=== PATIENT | female | born 1960 | race Hispanic/Latino ===

== ENCOUNTER 2020-04-22 17:33 | Inpatient (IN) | payer BC, OTHER, SELFPAY ==
[~2020-04-22] VITALS: Ht 157.5 cm; Wt 84.0 kg
[2020-04-22] MEDS ORDERED: ZOSYN 3.375GM+NS 50ML 50 ML IV ONE (18:00)
[2020-04-22] MEDS ORDERED: NOREPINEPHRINE 4MG/NS 250ML 250 ML IV ONE (18:01)
[2020-04-22 18:06] LABS: BASOPHILS % (AUTO) 0.9 % (0.0-5.0); EOSINOPHILS % (AUTO) 0.9 % (0.0-8.0); HEMATOCRIT 35.9 % (36-48); LYMPHOCYTES % (AUTO) 3.8 % (21.0-51.0); MEAN CORPUSCULAR HEMOGLOBIN 27.5 pg (27.0-33.0); MEAN CORPUSCULAR HGB CONC 31.8 g/dL (32.0-36.0); MEAN CORPUSCULAR VOLUME 86.7 fL (79-99); MONOCYTES % (AUTO) 9.1 % (3.0-13.0); NEUTROPHILS % (AUTO) 84.8 % (40.0-77.0); PLATELET COUNT (AUTO) 131 K/uL (130-400); RED BLOOD CELL COUNT(AUTO) 4.14 MIL/uL (4.00-5.50); WHITE BLOOD COUNT (AUTO) 5.8 K/uL (4.8-10.8)
[2020-04-22 18:38] LABS: APPEARANCE,URINE Clear (CLEAR); BILIRUBIN,URINE Negative (NEGATIVE); COLOR,URINE Yellow (YELLOW); GLUCOSE, URINE (UA) >=1000 mg/dL (NEGATIVE); KETONES,URINE Negative (NEGATIVE); LEUKOCYTE ESTERASE ,URINE Trace (NEGATIVE); NITRATE,URINE Negative (NEGATIVE); OCCULT BLOOD,URINE Negative (NEGATIVE); PROTEIN,URINE POS 1+ mg/dL (NEGATIVE); UROBILINOGEN,URINE 0.2 mg/dL (0.2-1.0)
[2020-04-22 18:41] LABS: ALANINE AMINOTRANSFERASE 16 U/L (12-78); ASPARTATE AMINOTRANSFERASE 16 U/L (10-37); CARBON DIOXIDE 19 mmol/L (21-32); CHLORIDE 95 mmol/L (101-111); CREATINE KINASE, TOTAL 43 U/L (21-232); CREATININE 1.9 mg/dL (0.5-1.5); GLOMERULAR FILTR. RATE CALC 29 mL/min (>60); GLUCOSE,RANDOM 300 mg/dL (70-105); MYOGLOBIN 165 ng/mL (10-92); SODIUM SERUM 132 mmol/L (136-145); TOTAL PROTEIN, SERUM 7.3 g/dL (6.0-8.3); TROPONIN I < 0.04 ng/mL (0.00-0.06); UREA NITROGEN, BLOOD 35 mg/dL (7-18)
[2020-04-22 18:46] LABS: POTASSIUM 2.6 mmol/L (3.5-5.1)
[2020-04-22] MEDS ORDERED: IOHEXOL-350 75 ML VIAL IV ONE (18:50)
[2020-04-22 18:53] LABS: BACTERIA,URINE Few /HPF (None Seen); RBC,URINE None Seen /HPF (0-1)
[2020-04-22 19:04] LABS: INR 1.22 (0.85-1.15); PROTHROMBIN TIME 13.1 SEC (9.6-11.6)
[2020-04-22 19:27] LABS: BAND NEUTROPHILS % (MANUAL) 32 % (0-2); LYMPHOCYTES % (MANUAL) 3 % (22-44); MAN.DIFF COMMENT-IMPRESSION MANUAL DIFFERENTIAL; METAMYELOCYTES % 8 % (0-0); MONOCYTES % (MANUAL) 9 % (2-9); SEGMENTED NEUTROPHILS % 48 % (40-70)
[2020-04-22] MEDS ORDERED: SODIUM CHLORIDE 0.9% 500ML 500 ML IV ONE ×3 (21:43→23:42)
[2020-04-22] MEDS ORDERED: FENTANYL CITRATE PF 50 MCG/1 ML 2ML VIAL ONE (22:58)
[2020-04-22] MEDS ORDERED: SODIUM CHLORIDE 0.9% 1000ML 1,000 ML IV SCH (23:48)
[2020-04-23] MEDS ORDERED: ERGOCALCIFEROL (VITAMIN D2) 50,000 UNIT CAPSULE PO SCH
[2020-04-23] MEDS ORDERED: DOXYCYCLINE 100MG+NS 250ML IV SCH
[2020-04-23] MEDS ORDERED: ERGOCALCIFEROL (VITAMIN D2) 50,000 UNIT CAPSULE ONE (00:55)
[2020-04-23] MEDS ORDERED: SODIUM CHLORIDE 0.9% 1000ML 1,000 ML IV ONE (00:55)
[2020-04-23] MEDS ORDERED: DOXYCYCLINE 100MG+NS 250ML 250 ML IV ONE ×3 (00:56→23:31)
[2020-04-23] MEDS ORDERED: NOREPINEPHRINE 4MG/NS 250ML 250 ML IV ONE ×6 (01:39→22:45)
[2020-04-23] MEDS ORDERED: PHENYLEPHRINE HCL 10 MG/ML 1ML VIAL IV ONE ×2 (02:27→22:57)
[2020-04-23] MEDS ORDERED: POTASSIUM CHLORIDE 20 MEQ ERTAB PO ONE (02:28)
[2020-04-23] MEDS: POTASSIUM CHLORIDE 20 MEQ ERTAB PO SCH (02:30)
[2020-04-23] MEDS ORDERED: NS-20 MEQ KCL 1000ML 1,000 ML IV ONE ×4 (02:31→22:55)
[2020-04-23] MEDS ORDERED: MORPHINE SULFATE 2 MG/ML 1ML SYG IVP PRN (03:00)
[2020-04-23] MEDS ORDERED: KETOROLAC TROMETHAMINE 30MG/ML IV PRN (03:00)
[2020-04-23 03:26] LABS: BASOPHILS % (AUTO) 0.9 % (0.0-5.0); EOSINOPHILS % (AUTO) 0.8 % (0.0-8.0); HEMATOCRIT 33.5 % (36-48); LYMPHOCYTES % (AUTO) 2.9 % (21.0-51.0); MEAN CORPUSCULAR HEMOGLOBIN 27.4 pg (27.0-33.0); MEAN CORPUSCULAR HGB CONC 31.6 g/dL (32.0-36.0); MEAN CORPUSCULAR VOLUME 86.6 fL (79-99); NEUTROPHILS % (AUTO) 88.1 % (40.0-77.0); PLATELET COUNT (AUTO) 167 K/uL (130-400); RED BLOOD CELL COUNT(AUTO) 3.87 MIL/uL (4.00-5.50); RED CELL DISTRIBUTION WIDTH 15.2 % (11.0-15.5); WHITE BLOOD COUNT (AUTO) 9.8 K/uL (4.8-10.8)
[2020-04-23] MEDS ORDERED: METRONIDAZOLE 500MG/100ML BAG 100 ML ONE ×3 (06:37→21:34)
[2020-04-23] MEDS ORDERED: INSULIN HUMULIN R 100 UNIT/ML 3ML ONE ×3 (06:44→18:01)
[2020-04-23] MEDS ORDERED: ENOXAPARIN SODIUM 40 MG/0.4 ML SYRINGE SQ SCH ×2 (09:00)
[2020-04-23] MEDS ORDERED: METHYLPREDNISOLONE SOD SUCC 40MG/ML 1ML IVP SCH (09:00)
[2020-04-23] MEDS ORDERED: FAMOTIDINE/PF 20 MG/2 ML VIAL IV ONE ×2 (09:09→21:34)
[2020-04-23] MEDS ORDERED: METHYLPREDNISOLONE SOD SUCC 40MG/ML 1ML ONE ×3 (09:09→21:34)
[2020-04-23] MEDS ORDERED: ENOXAPARIN SODIUM 40 MG/0.4 ML SYRINGE SQ ONE (09:09)
[2020-04-23] MEDS ORDERED: KETOROLAC TROMETHAMINE 30MG/ML ONE (09:13)
[2020-04-23] MEDS ORDERED: LORAZEPAM 2 MG/ML 1 ML VIAL ONE (09:52)
[2020-04-23] MEDS ORDERED: NOREPINEPHRINE 4MG/NS 250ML 250 ML IV PRN (11:15)
[2020-04-23] MEDS ORDERED: VASOPRESSIN 20 UNITS/NS 100ML IV SCH ×2 (11:15)
[2020-04-23 11:30] LABS: ABG BASE EXCESS -13.6 mmol/L (-2.0-3.0); ABG HCO3 12.9 mmol/L (21.0-28.0); ABG OXYGEN SATURATION 92.3 % (95.0-99.0); ABG PCO2 32 mmHg (32-45)
--- NOTE | 2020-04-23 12:03 | NUR ---
DC PLAN CALLED SPOUSE CLEMENTINA NO ANSWER LEFT MESSAGE. Addendum: 04/23/20 at 1205 by MELYSSA BAZAN RN CM Amended: Links added.
--- NOTE | 2020-04-23 15:00 | NUR ---
6 FR 3 LUMEN PICC INSERTED TO RIGHT BASILIC VEIN, USING ASEPTIC TECHNIQUE. CATHETER TRIMMED TO 43 CM, WITH 42CM INTERNALLY AND 1CM EXTERNAL; RIGHT ARM CIRCUMERERNCE 33CM. ALL 3 LUMENS HAVE GOOD BLOOD RETURN AND FLUSHED EASILY AND CLAMPED. (+) VPS BULLEYE INDICATES PICC TIP IN LOWER 1/3 OF SVC OR AT CAVOATRIAL JUNCTION. PICC OK TO USE PER PROTOCOL. WILFRIDO EVANGELISTA AWARE.
[2020-04-23 15:22] LABS: CREATININE 1.3 mg/dL (0.5-1.5); POTASSIUM 4.3 mmol/L (3.5-5.1)
[2020-04-23 15:27] LABS: ALBUMIN 2.1 g/dL (3.5-5.0); BILIRUBIN,TOTAL 0.4 mg/dL (0.2-1.0); TOTAL PROTEIN, SERUM 6.1 g/dL (6.0-8.3)
[2020-04-23 16:33] LABS: ABG BASE EXCESS -14.9 mmol/L (-2.0-3.0); ABG HCO3 11.4 mmol/L (21.0-28.0); ABG PCO2 29 mmHg (32-45)
[2020-04-23] MEDS ORDERED: SODIUM BICARB 8.4% 50ML SYRING 150 MEQ in SODIUM CHLORIDE 0.9% 1000ML 1,000 ML IV SCH (16:45)
[2020-04-23] MEDS ORDERED: SODIUM BICARB 50MEQ 50ML VIAL ONE (17:22)
[2020-04-23] MEDS ORDERED: MORPHINE SULFATE 2 MG/ML 1ML SYG ONE (18:25)
[2020-04-23] MEDS ORDERED: LORAZEPAM 2 MG/ML 1 ML VIAL IM PRN (19:15)
[2020-04-23] MEDS ORDERED: ACETYLCYSTEINE 600 MG CAPSULE ONE (21:34)
[2020-04-23 22:33] LABS: ABG BASE EXCESS -15.8 mmol/L (-2.0-3.0); ABG HCO3 10.6 mmol/L (21.0-28.0); ABG OXYGEN SATURATION 92.2 % (95.0-99.0); ABG PCO2 28 mmHg (32-45)
[2020-04-24] MEDS ORDERED: HALOPERIDOL LACTATE 5 MG/ML VIAL IM PRN (00:45)
[2020-04-24] MEDS ORDERED: LORAZEPAM 2 MG/ML 1 ML VIAL ONE (01:06)
[2020-04-24] MEDS ORDERED: PROPOFOL 1000 MG/100 ML 100 ML IV PRN (01:30)
[2020-04-24] MEDS ORDERED: PROPOFOL 1000 MG/100 ML 100 ML IV ONE ×4 (01:32→13:23)
[2020-04-24] MEDS ORDERED: MIDAZOLAM HCL 5 MG/ML 2ML VIAL IV ONE ×2 (02:09→03:25)
[2020-04-24] MEDS ORDERED: FENTANYL CITRATE PF 50 MCG/1 ML 2ML VIAL ONE (02:09)
[2020-04-24] MEDS: POTASSIUM CHLORIDE 20 MEQ ERTAB PO SCH (02:30)
[2020-04-24 02:44] LABS: ABG HCO3 11.4 mmol/L (21.0-28.0); ABG OXYGEN SATURATION 88.9 % (95.0-99.0); ABG PCO2 39 mmHg (32-45)
[2020-04-24] MEDS ORDERED: SODIUM BICARB 50MEQ 50ML VIAL ONE (03:22)
[2020-04-24] MEDS ORDERED: FENTANYL 2500MCG+NS 250ML 250 ML IV ONE (03:22)
[2020-04-24] MEDS ORDERED: MIDAZOLAM HCL 1 MG/ML 2ML VIAL ONE ×2 (03:25→03:26)
[2020-04-24] MEDS ORDERED: SODIUM BICARBONATE 650 MG TAB ONE ×2 (03:27→12:25)
[2020-04-24] MEDS ORDERED: NOREPINEPHRINE 4MG/NS 250ML 250 ML IV ONE ×3 (03:33→18:28)
[2020-04-24 04:46] LABS: ABG BASE EXCESS -13.1 mmol/L (-2.0-3.0); ABG HCO3 12.1 mmol/L (21.0-28.0); ABG OXYGEN SATURATION 98.9 % (95.0-99.0); ABG PCO2 27 mmHg (32-45)
[2020-04-24] MEDS ORDERED: METRONIDAZOLE 500MG/100ML BAG 100 ML ONE (05:34)
[2020-04-24] MEDS ORDERED: INSULIN HUMULIN R 100 UNIT/ML 3ML ONE ×2 (05:35→12:39)
[2020-04-24 06:18] LABS: ALBUMIN 1.9 g/dL (3.5-5.0); BILIRUBIN,DIRECT 0.1 mg/dL (0.0-0.3); BILIRUBIN,TOTAL 0.5 mg/dL (0.2-1.0); CREATININE 1.1 mg/dL (0.5-1.5); MAGNESIUM 2.3 mg/dL (1.80-2.40); PHOSPHORUS 3.6 mg/dL (2.5-4.9); POTASSIUM 4.4 mmol/L (3.5-5.1); TOTAL PROTEIN, SERUM 6.3 g/dL (6.0-8.3)
[2020-04-24] MEDS ORDERED: FENTANYL 1000MCG+NS 100ML 100 ML IV SCH (06:30)
[2020-04-24 06:37] LABS: CRP QUANTITATIVE 492.5 mg/L (0.00-9.0)
[2020-04-24] MEDS ORDERED: PHENYLEPHRINE HCL 10 MG/ML 1ML VIAL IV ONE (08:57)
[2020-04-24] MEDS: ZINC SULFATE 220 CAPSULE PO SCH (09:00)
[2020-04-24] MEDS: ASCORBIC ACID 500 MG TAB PO SCH (09:00)
[2020-04-24] MEDS ORDERED: ASCORBIC ACID 500 MG TAB ONE (09:43)
[2020-04-24] MEDS ORDERED: METHYLPREDNISOLONE SOD SUCC 40MG/ML 1ML ONE (09:43)
[2020-04-24] MEDS ORDERED: ENOXAPARIN SODIUM 40 MG/0.4 ML SYRINGE SQ ONE (09:44)
[2020-04-24] MEDS ORDERED: FAMOTIDINE/PF 20 MG/2 ML VIAL IV ONE (09:44)
[2020-04-24] MEDS ORDERED: ACETAMINOPHEN 650 MG SUPPOSITORY RC ONE (11:07)
[2020-04-24] MEDS ORDERED: DOXYCYCLINE 100MG+NS 250ML 250 ML IV ONE (12:49)
[2020-04-24] MEDS ORDERED: ACETAMINOPHEN EXTRA STRENGTH 500 MG TABLET ONE (13:05)
[2020-04-24 13:28] LABS: ABG BASE EXCESS -10.2 mmol/L (-2.0-3.0); ABG HCO3 13.5 mmol/L (21.0-28.0); ABG OXYGEN SATURATION 96.6 % (95.0-99.0); ABG PCO2 25 mmHg (32-45)
--- NOTE | 2020-04-24 15:22 | NUR ---
ICU ADMISSION NOTE Patient received sedated on fentanyl and propofol. Vital signs with in normal limits on herberth and levophed drip. Patient noted to have area of ecchymosis and hardened area on RUQ that appears to be a bug bite. Patient also has a wound on her back from a previous bug bite in which she has an I&D done, pelvic area edematous. Will continue to monitor patient.
--- NOTE | 2020-04-24 15:23 | NUR ---
cm note pt intubated on vent, call made to pts' spouse andry renae jr, and states that pt resides at home with him, is independent with all ads/self care and ambulation. no dme. pt drives, sees alden quick at [facility] [place]. states dc plan is for her to return back home at time of dc. discussed local clinics for non funded pt's and help vale phone #s provided, rx assist programs, spouse verbalizes understanding. Addendum: 04/24/20 at 1531 by VALERIA MCLEOD CM Amended: Links added.
[2020-04-24] MEDS ORDERED: NOREPINEPHRINE BITARTRATE 32 MG in SODIUM CHLORIDE 0.9% 250 ML IV SCH (17:30)
[2020-04-24] MEDS ORDERED: FLUCONAZOLE 200 MG/NS 100 ML 100 ML ONE (17:53)
[2020-04-24] MEDS ORDERED: METHYLPREDNISOLONE SOD SUCC 125MG/2ML VIAL ONE (17:54)
[2020-04-24] MEDS: INSULIN HUMULIN R 100 UNIT/ML 3ML SQ SCH (18:00)
[2020-04-24] MEDS: NS-20 MEQ KCL 1000ML 1,000 ML IV SCH (18:30)
[2020-04-24 19:48] VITALS: BP 158/66
[2020-04-24 20:00] VITALS: BP 159/63
[2020-04-24] MEDS: SODIUM BICARB 8.4% 50ML SYRING 150 MEQ in DEXTROSE 5%-WATER 1,000 ML IVP SCH ×2 (20:51→22:52)
[2020-04-24 21:00] VITALS: BP 152/60
[2020-04-24] MEDS ORDERED: ENOXAPARIN SODIUM 80 MG/0.8 ML SQ SCH (21:00)
[2020-04-24] MEDS ORDERED: ENOXAPARIN SODIUM 1 MG/KG SQ SCH (21:00)
[2020-04-24] MEDS: FAMOTIDINE/PF 20 MG/2 ML VIAL IV SCH (21:10)
[2020-04-24] MEDS: DOXYCYCLINE 100MG+NS 250ML 250 ML IV SCH (21:11)
[2020-04-24] MEDS: ACETYLCYSTEINE 600 MG CAPSULE PO SCH (21:11)
[2020-04-24] MEDS: METRONIDAZOLE 500MG/100ML BAG 100 ML IV SCH (21:56)
[2020-04-24 22:00] VITALS: BP 162/61
[2020-04-25] VITALS (56 sets, daily range): BP systolic 107–165; BP diastolic 46–65
[2020-04-25] MEDS: INSULIN HUMULIN R 100 UNIT/ML 3ML SQ SCH ×4 (00:04→18:16)
[2020-04-25] MEDS: NS-20 MEQ KCL 1000ML 1,000 ML IV SCH ×2 (01:04→05:30)
[2020-04-25] MEDS: POTASSIUM CHLORIDE 20 MEQ ERTAB PO SCH (02:03)
[2020-04-25] MEDS: PHENYLEPHRINE HCL 50 MG in SODIUM CHLORIDE 0.9% 245 ML IV PRN ×2 (03:52→18:17)
[2020-04-25] MEDS: ACETAMINOPHEN 325 MG TAB PO PRN (04:13)
[2020-04-25] MEDS: SODIUM BICARB 8.4% 50ML SYRING 150 MEQ in DEXTROSE 5%-WATER 1,000 ML IVP SCH (04:14)
[2020-04-25] MEDS: METRONIDAZOLE 500MG/100ML BAG 100 ML IV SCH ×3 (05:39→22:23)
[2020-04-25 05:56] LABS: EOSINOPHILS % (AUTO) 0.1 % (0.0-8.0); HEMATOCRIT 33.4 % (36-48); LYMPHOCYTES % (AUTO) 4.3 % (21.0-51.0); MEAN CORPUSCULAR HEMOGLOBIN 27.2 pg (27.0-33.0); MONOCYTES % (AUTO) 4.1 % (3.0-13.0); NEUTROPHILS % (AUTO) 90.9 % (40.0-77.0); NUCLEATED RED BLOOD CELLS 0.2 % (0.0-0.19); PLATELET COUNT (AUTO) 153 K/uL (130-400); RED BLOOD CELL COUNT(AUTO) 3.93 MIL/uL (4.00-5.50); RED CELL DISTRIBUTION WIDTH 15.8 % (11.0-15.5); WHITE BLOOD COUNT (AUTO) 12.8 K/uL (4.8-10.8)
[2020-04-25 06:48] LABS: BILIRUBIN,TOTAL 0.6 mg/dL (0.2-1.0); CREATININE 1.1 mg/dL (0.5-1.5); PHOSPHORUS 2.3 mg/dL (2.5-4.9); POTASSIUM 3.4 mmol/L (3.5-5.1); TOTAL PROTEIN, SERUM 6.2 g/dL (6.0-8.3)
[2020-04-25 07:00] LABS: CRP QUANTITATIVE 411.3 mg/L (0.00-9.0)
[2020-04-25] MEDS ORDERED: VANCOMYCIN PROTOCOL PER PHARMACY IV SCH (07:15)
[2020-04-25] MEDS ORDERED: HYDROCORTISONE SOD SUCCINATE 100 MG/2 ML VIAL IV SCH (07:15)
[2020-04-25 07:18] LABS: ALBUMIN 1.4 g/dL (3.5-5.0)
[2020-04-25] MEDS ORDERED: COMPOUND IV REFRIGERATED 1 EACH IVSOLN MISC PRN (07:30)
[2020-04-25] MEDS: INSULIN GLARGINE 100 UNITS/ML 10 ML VIAL SQ SCH (08:13)
[2020-04-25] MEDS ORDERED: LIDOCAINE HCL-MPF 1% 2ML VIAL IV PRN (08:15)
[2020-04-25] MEDS: ZINC SULFATE 220 CAPSULE PO SCH ×2 (08:17→09:00)
[2020-04-25] MEDS: CEFEPIME HCL 1 GM VIAL IVP SCH ×3 (08:18→23:27)
[2020-04-25] MEDS: FAMOTIDINE/PF 20 MG/2 ML VIAL IV SCH ×2 (08:18→21:23)
[2020-04-25] MEDS: ASCORBIC ACID 500 MG TAB PO SCH ×2 (08:18→09:00)
[2020-04-25] MEDS: ACETYLCYSTEINE 600 MG CAPSULE PO SCH (08:18)
[2020-04-25] MEDS: ENOXAPARIN SODIUM 40 MG/0.4 ML SYRINGE SQ SCH (08:19)
[2020-04-25] MEDS: VANCOMYCIN 1.5 GM in SODIUM CHLORIDE 0.9% 250 ML IV SCH (08:21)
[2020-04-25] MEDS: DOXYCYCLINE 100MG+NS 250ML 250 ML IV SCH ×2 (09:13→21:23)
[2020-04-25] MEDS ORDERED: LACTULOSE 20 GM/30 ML UDCUP PO SCH (10:00)
[2020-04-25] MEDS ORDERED: PHARMACY COMMUNICATION MISC SCH (10:30)
[2020-04-25] MEDS: FENTANYL 2500MCG+NS 250ML 250 ML IV SCH (10:47)
[2020-04-25] MEDS ORDERED: INSULIN HUMULIN R 100 UNIT/ML 3ML SQ SCH (12:00)
--- NOTE | 2020-04-25 12:56 | NUR ---
DR JORDAN CONSULT DR JORDAN CONSULTED AND MADE AWARE; STATED SHE SEES PATIENT ON AN OUTPATIENT BASIS WELL AND WOULD COME IN TO SEE PATIENT TODAY. NO ORDERS GIVEN AT THIS TIME
[2020-04-25] MEDS: HYDROCORTISONE SOD SUCCINATE 100 MG/2 ML VIAL IV SCH ×2 (16:19→22:23)
[2020-04-25] MEDS: HONEY 1 APPL/ML TUBE TP SCH (16:56)
[2020-04-25] MEDS ORDERED: ALBUTEROL INHALER 90MCG/INH IH SCH (18:00)
[2020-04-25] MEDS ORDERED: ACETYLCYSTEINE 10% 100MG/ML 4ML VIAL IH SCH (21:00)
[2020-04-25] MEDS: LACTULOSE 20 GM/30 ML UDCUP PO SCH (21:23)
[2020-04-25] MEDS: ALBUTEROL INHALER 90MCG/INH IH SCH (21:25)
[2020-04-25] MEDS: MIDAZOLAM 100MG-0.9% NS 100ML 100 ML IV SCH (23:52)
[2020-04-26] VITALS (19 sets, daily range): BP systolic 96–132; BP diastolic 45–78
[2020-04-26] MEDS: INSULIN HUMULIN R 100 UNIT/ML 3ML SQ SCH ×4 (00:09→17:56)
[2020-04-26] MEDS: MIDAZOLAM 100MG-0.9% NS 100ML 100 ML IV SCH (00:57)
[2020-04-26] MEDS: ALBUTEROL INHALER 90MCG/INH IH SCH ×4 (03:11→20:45)
[2020-04-26] MEDS: HYDROCORTISONE SOD SUCCINATE 100 MG/2 ML VIAL IV SCH ×4 (04:17→22:24)
[2020-04-26 05:01] LABS: HEMATOCRIT 30.8 % (36-48); LYMPHOCYTES % (AUTO) 7.7 % (21.0-51.0); MEAN CORPUSCULAR HEMOGLOBIN 27.7 pg (27.0-33.0); MEAN CORPUSCULAR HGB CONC 32.1 g/dL (32.0-36.0); NEUTROPHILS % (AUTO) 85.3 % (40.0-77.0); PLATELET COUNT (AUTO) 118 K/uL (130-400); RED BLOOD CELL COUNT(AUTO) 3.58 MIL/uL (4.00-5.50); RED CELL DISTRIBUTION WIDTH 15.7 % (11.0-15.5); WHITE BLOOD COUNT (AUTO) 9.4 K/uL (4.8-10.8)
[2020-04-26] MEDS: METRONIDAZOLE 500MG/100ML BAG 100 ML IV SCH ×3 (05:28→22:24)
[2020-04-26 05:33] LABS: ALBUMIN 1.2 g/dL (3.5-5.0); BILIRUBIN,TOTAL 0.5 mg/dL (0.2-1.0); MAGNESIUM 2.4 mg/dL (1.80-2.40); PHOSPHORUS 2.3 mg/dL (2.5-4.9); TOTAL PROTEIN, SERUM 5.7 g/dL (6.0-8.3)
[2020-04-26 05:39] LABS: ABG BASE EXCESS 1.6 mmol/L (-2.0-3.0); ABG HCO3 24.6 mmol/L (21.0-28.0); ABG OXYGEN SATURATION 89.2 % (95.0-99.0); ABG PCO2 34 mmHg (32-45)
[2020-04-26 05:54] LABS: POTASSIUM 2.8 mmol/L (3.5-5.1)
[2020-04-26] MEDS: POTASSIUM CHLORIDE 20MEQ/100ML 100 ML IV PRN (05:58)
[2020-04-26] MEDS: CEFEPIME HCL 1 GM VIAL IVP SCH ×2 (06:25→17:34)
--- NOTE | 2020-04-26 07:30 | NUR ---
DR. WRIGHT HERE AND ORDERS NOTED. FIO2 INCREASED TO 50% AND DOMINGUEZ MULLEN NOTIFIED.
[2020-04-26] MEDS: ASCORBIC ACID 500 MG TAB PO SCH (08:05)
[2020-04-26] MEDS: ZINC SULFATE 220 CAPSULE PO SCH (08:05)
[2020-04-26] MEDS: FAMOTIDINE/PF 20 MG/2 ML VIAL IV SCH ×2 (08:05→21:00)
[2020-04-26] MEDS: ENOXAPARIN SODIUM 40 MG/0.4 ML SYRINGE SQ SCH (08:06)
[2020-04-26] MEDS: HONEY 1 APPL/ML TUBE TP SCH (08:09)
[2020-04-26] MEDS: INSULIN GLARGINE 100 UNITS/ML 10 ML VIAL SQ SCH (08:09)
[2020-04-26 09:46] LABS: CRP QUANTITATIVE 291.2 mg/L (0.00-9.0)
--- NOTE | 2020-04-26 15:47 | NUR ---
RD NOTIFICATION Pt admitted with Abdominal pain. S/p Intubation. Tube Feeding Recommendation: Continuous Vital AF 1.2 initiated at 20mls/hr. Goal rate 50mls/hr. Rec flushes at 140mls Q4Hrs. Faxed to Day Patient (365), RN notified. NUTRITION NOTE: Pt with Obesity Class II. Na 150, K 2.8, BG 232, P 2.3, Alb 1.2. RD to continue to monitor. Please notify as additional nutrition concerns arise. Thank you.
--- NOTE | 2020-04-26 17:00 | NUR ---
HAVE SPOKEN TO TWICE TODAY AND UPDATES HAVE BEEN GIVEN. PT HAS REMAINED BASICALLY UNCHANGED. WOUND CARE NURSE HERE AND [place] THAT [place] [facility] [place]
[2020-04-26] MEDS: DOXYCYCLINE 100MG+NS 250ML 250 ML IV SCH ×2 (17:31→22:24)
[2020-04-26] MEDS: VANCOMYCIN 1.5 GM in SODIUM CHLORIDE 0.9% 250 ML IV SCH (17:32)
[2020-04-26] MEDS: LACTULOSE 20 GM/30 ML UDCUP PO SCH ×2 (17:33→22:24)
[2020-04-26] MEDS: FENTANYL 2500MCG+NS 250ML 250 ML IV SCH (20:47)
[2020-04-27] VITALS (24 sets, daily range): BP systolic 94–130; BP diastolic 45–60
[2020-04-27] MEDS: CEFEPIME HCL 1 GM VIAL IVP SCH ×3 (00:06→14:34)
[2020-04-27] MEDS: INSULIN HUMULIN R 100 UNIT/ML 3ML SQ SCH ×4 (00:07→17:31)
[2020-04-27] MEDS: ALBUTEROL INHALER 90MCG/INH IH SCH ×4 (03:00→21:15)
[2020-04-27] MEDS: HYDROCORTISONE SOD SUCCINATE 100 MG/2 ML VIAL IV SCH (04:40)
[2020-04-27 05:56] LABS: BASOPHILS % (AUTO) 0.2 % (0.0-5.0); LYMPHOCYTES % (AUTO) 10.2 % (21.0-51.0); MEAN CORPUSCULAR HEMOGLOBIN 27.5 pg (27.0-33.0); MEAN CORPUSCULAR HGB CONC 31.6 g/dL (32.0-36.0); MEAN CORPUSCULAR VOLUME 86.8 fL (79-99); MONOCYTES % (AUTO) 4.4 % (3.0-13.0); PLATELET COUNT (AUTO) 129 K/uL (130-400); RED BLOOD CELL COUNT(AUTO) 3.57 MIL/uL (4.00-5.50); RED CELL DISTRIBUTION WIDTH 16.1 % (11.0-15.5); WHITE BLOOD COUNT (AUTO) 10.4 K/uL (4.8-10.8)
[2020-04-27] MEDS: METRONIDAZOLE 500MG/100ML BAG 100 ML IV SCH ×3 (06:06→22:10)
[2020-04-27 06:20] LABS: ALBUMIN 1.1 g/dL (3.5-5.0); BILIRUBIN,TOTAL 0.4 mg/dL (0.2-1.0); TOTAL PROTEIN, SERUM 5.3 g/dL (6.0-8.3)
[2020-04-27] MEDS: POTASSIUM CHLORIDE 20MEQ/100ML 100 ML IV PRN ×4 (06:49→17:35)
[2020-04-27] MEDS: FAMOTIDINE/PF 20 MG/2 ML VIAL IV SCH ×2 (09:09→21:09)
[2020-04-27] MEDS: DOXYCYCLINE 100MG+NS 250ML 250 ML IV SCH ×2 (09:09→21:07)
[2020-04-27] MEDS: LACTULOSE 20 GM/30 ML UDCUP PO SCH ×2 (09:09→21:08)
[2020-04-27] MEDS: FUROSEMIDE 10 MG/ML 2ML VIAL IV SCH ×2 (09:10→21:08)
[2020-04-27] MEDS: ENOXAPARIN SODIUM 40 MG/0.4 ML SYRINGE SQ SCH (09:11)
[2020-04-27] MEDS: INSULIN GLARGINE 100 UNITS/ML 10 ML VIAL SQ SCH (09:12)
[2020-04-27] MEDS: ASCORBIC ACID 500 MG TAB PO SCH (09:12)
[2020-04-27] MEDS: ZINC SULFATE 220 CAPSULE PO SCH (09:12)
[2020-04-27] MEDS: HONEY 1 APPL/ML TUBE TP SCH (09:15)
[2020-04-27] MEDS: MIDAZOLAM 100MG-0.9% NS 100ML 100 ML IV SCH (12:41)
[2020-04-27] MEDS: VANCOMYCIN 1.5 GM in SODIUM CHLORIDE 0.9% 250 ML IV SCH ×2 (12:42→21:12)
[2020-04-27 15:57] LABS: CREATININE 0.9 mg/dL (0.5-1.5)
[2020-04-27 15:59] LABS: POTASSIUM 2.6 mmol/L (3.5-5.1)
[2020-04-27] MEDS ORDERED: POTASSIUM CHLORIDE 10% ELIXIR 20 MEQ/15 ML UDCUP PO SCH (18:00)
[2020-04-28] VITALS (24 sets, daily range): BP systolic 91–162; BP diastolic 41–88
[2020-04-28] MEDS: CEFEPIME HCL 1 GM VIAL IVP SCH ×3 (00:09→14:12)
[2020-04-28] MEDS: INSULIN HUMULIN R 100 UNIT/ML 3ML SQ SCH ×4 (00:12→18:11)
[2020-04-28 03:47] LABS: ABG BASE EXCESS -0.5 mmol/L (-2.0-3.0); ABG HCO3 22.9 mmol/L (21.0-28.0); ABG OXYGEN SATURATION 92.2 % (95.0-99.0); ABG PCO2 34 mmHg (32-45)
[2020-04-28] MEDS: ALBUTEROL INHALER 90MCG/INH IH SCH ×4 (03:47→21:38)
[2020-04-28] MEDS: FENTANYL 2500MCG+NS 250ML 250 ML IV SCH (03:48)
[2020-04-28 04:58] LABS: BASOPHILS % (AUTO) 0.5 % (0.0-5.0); EOSINOPHILS % (AUTO) 0.3 % (0.0-8.0); HEMATOCRIT 34.7 % (36-48); LYMPHOCYTES % (AUTO) 9.6 % (21.0-51.0); MEAN CORPUSCULAR HGB CONC 30.5 g/dL (32.0-36.0); MEAN CORPUSCULAR VOLUME 88.5 fL (79-99); MONOCYTES % (AUTO) 2.6 % (3.0-13.0); NEUTROPHILS % (AUTO) 85.1 % (40.0-77.0); NUCLEATED RED BLOOD CELLS 0.1 % (0.0-0.19); PLATELET COUNT (AUTO) 146 K/uL (130-400); RED BLOOD CELL COUNT(AUTO) 3.92 MIL/uL (4.00-5.50); RED CELL DISTRIBUTION WIDTH 16.3 % (11.0-15.5); WHITE BLOOD COUNT (AUTO) 15.5 K/uL (4.8-10.8)
[2020-04-28 05:20] LABS: ALBUMIN 1.1 g/dL (3.5-5.0); BILIRUBIN,TOTAL 0.4 mg/dL (0.2-1.0); CREATININE 0.8 mg/dL (0.5-1.5); MAGNESIUM 1.9 mg/dL (1.80-2.40); POTASSIUM 3.2 mmol/L (3.5-5.1); TOTAL PROTEIN, SERUM 5.6 g/dL (6.0-8.3)
[2020-04-28] MEDS: METRONIDAZOLE 500MG/100ML BAG 100 ML IV SCH ×3 (05:31→21:37)
[2020-04-28] MEDS: POTASSIUM CHLORIDE 10% ELIXIR 20 MEQ/15 ML UDCUP PO PRN ×2 (06:11→18:29)
--- NOTE | 2020-04-28 06:15 | NUR ---
Potassium coverage given per protocol and patient kept NPO at this time for a possible extubation.
[2020-04-28] MEDS: LACTULOSE 20 GM/30 ML UDCUP PO SCH ×2 (08:11→21:35)
[2020-04-28] MEDS: VANCOMYCIN 1.5 GM in SODIUM CHLORIDE 0.9% 250 ML IV SCH ×2 (08:13→21:37)
[2020-04-28] MEDS: FAMOTIDINE/PF 20 MG/2 ML VIAL IV SCH ×2 (08:14→21:36)
[2020-04-28] MEDS: FUROSEMIDE 10 MG/ML 2ML VIAL IV SCH ×2 (08:14→21:36)
[2020-04-28] MEDS: ZINC SULFATE 220 CAPSULE PO SCH (08:15)
[2020-04-28] MEDS: ENOXAPARIN SODIUM 40 MG/0.4 ML SYRINGE SQ SCH (08:15)
[2020-04-28] MEDS: ASCORBIC ACID 500 MG TAB PO SCH (08:16)
[2020-04-28] MEDS: INSULIN GLARGINE 100 UNITS/ML 10 ML VIAL SQ SCH (09:00)
--- NOTE | 2020-04-28 10:30 | NUR ---
HAVE SPOKEN WITH AND WAS UPDATED ON THE PRESENT STATUS AND PLAN OF TREATMENT/CARE FOR TODAY. TO CALL LATER TODAY TO CHECK ON THE OTHER DOCTORS PLAN OF CARE.
[2020-04-28] MEDS: DOXYCYCLINE HYCLATE 100 MG TABLET PO SCH ×2 (12:09→21:36)
[2020-04-28] MEDS: HONEY 1 APPL/ML TUBE TP SCH (12:10)
[2020-04-28] MEDS ORDERED: ACETAMINOPHEN ELIXIR 160 MG/5ML UDCUP PO PRN (13:45)
[2020-04-28] MEDS: MEROPENEM 1 GM VIAL IVP SCH (16:12)
[2020-04-28 17:20] LABS: CREATININE 0.9 mg/dL (0.5-1.5); MAGNESIUM 1.9 mg/dL (1.80-2.40); POTASSIUM 3.4 mmol/L (3.5-5.1)
[2020-04-28] MEDS: ACETAMINOPHEN ELIXIR 650 MG/20.3 ML UDCUP PO PRN (17:24)
[2020-04-28] MEDS: POTASSIUM CHLORIDE 20MEQ/100ML 100 ML IV PRN (18:12)
[2020-04-28] MEDS: MAGNESIUM 2GM PREMIX 50ML 50 ML IV PRN (18:35)
[2020-04-28] MEDS: ALBUTEROL SULFATE 0.083% 2.5 MG/3 ML INH IH SCH (23:55)
[2020-04-28] MEDS: ACETYLCYSTEINE 10% 100MG/ML 4ML VIAL IH SCH (23:55)
[2020-04-29] VITALS (35 sets, daily range): BP systolic 89–161; BP diastolic 41–69
[2020-04-29] MEDS: INSULIN HUMULIN R 100 UNIT/ML 3ML SQ SCH ×4 (01:05→17:20)
[2020-04-29] MEDS: MEROPENEM 1 GM VIAL IVP SCH ×2 (03:58→15:48)
[2020-04-29 05:15] LABS: BASOPHILS % (AUTO) 0.3 % (0.0-5.0); EOSINOPHILS % (AUTO) 0.4 % (0.0-8.0); HEMATOCRIT 34.8 % (36-48); LYMPHOCYTES % (AUTO) 10.6 % (21.0-51.0); MEAN CORPUSCULAR HEMOGLOBIN 27.4 pg (27.0-33.0); MEAN CORPUSCULAR HGB CONC 30.7 g/dL (32.0-36.0); MONOCYTES % (AUTO) 2.8 % (3.0-13.0); NEUTROPHILS % (AUTO) 83.9 % (40.0-77.0); NUCLEATED RED BLOOD CELLS 0.2 % (0.0-0.19); PLATELET COUNT (AUTO) 161 K/uL (130-400); RED BLOOD CELL COUNT(AUTO) 3.91 MIL/uL (4.00-5.50); RED CELL DISTRIBUTION WIDTH 16.6 % (11.0-15.5); WHITE BLOOD COUNT (AUTO) 17.1 K/uL (4.8-10.8)
[2020-04-29 05:45] LABS: CREATININE 0.9 mg/dL (0.5-1.5); POTASSIUM 3.3 mmol/L (3.5-5.1)
[2020-04-29] MEDS: METRONIDAZOLE 500MG/100ML BAG 100 ML IV SCH ×3 (06:13→22:23)
[2020-04-29] MEDS: POTASSIUM CHLORIDE 10% ELIXIR 20 MEQ/15 ML UDCUP PO PRN ×3 (06:34→09:51)
[2020-04-29] MEDS: ACETYLCYSTEINE 10% 100MG/ML 4ML VIAL IH SCH ×3 (06:45→19:45)
[2020-04-29] MEDS: ALBUTEROL SULFATE 0.083% 2.5 MG/3 ML INH IH SCH ×3 (06:45→19:45)
[2020-04-29 06:51] LABS: ABG BASE EXCESS 2.7 mmol/L (-2.0-3.0); ABG HCO3 25.7 mmol/L (21.0-28.0); ABG PCO2 35 mmHg (32-45)
[2020-04-29] MEDS: FAMOTIDINE/PF 20 MG/2 ML VIAL IV SCH ×2 (08:04→20:13)
[2020-04-29] MEDS: ZINC SULFATE 220 CAPSULE PO SCH (08:05)
[2020-04-29] MEDS: LACTULOSE 20 GM/30 ML UDCUP PO SCH ×2 (08:05→19:18)
[2020-04-29] MEDS: DOXYCYCLINE HYCLATE 100 MG TABLET PO SCH ×2 (08:05→20:13)
--- NOTE | 2020-04-29 08:05 | NUR ---
Held dose of Lactulose, 2 large BMs reported per race steward nurse
[2020-04-29] MEDS: INSULIN GLARGINE 100 UNITS/ML 10 ML VIAL SQ SCH (08:07)
[2020-04-29] MEDS: ENOXAPARIN SODIUM 40 MG/0.4 ML SYRINGE SQ SCH (08:10)
[2020-04-29] MEDS: HONEY 1 APPL/ML TUBE TP SCH (08:38)
[2020-04-29] MEDS: FENTANYL 2500MCG+NS 250ML 250 ML IV SCH (08:39)
[2020-04-29] MEDS ORDERED: POTASSIUM CHLORIDE 10% ELIXIR 20 MEQ/15 ML UDCUP NG SCH (10:37)
[2020-04-29] MEDS: VANCOMYCIN 1.5 GM in SODIUM CHLORIDE 0.9% 250 ML IV SCH (10:41)
--- NOTE | 2020-04-29 10:42 | NUR ---
Rec'd tpotal of 60 MEQ of POtassium Chloride, as per protocol, made aware
[2020-04-29] MEDS: ASCORBIC ACID 500 MG TAB PO SCH (10:43)
[2020-04-29] MEDS: MIDAZOLAM 100MG-0.9% NS 100ML 100 ML IV SCH ×2 (13:14→23:59)
--- NOTE | 2020-04-29 15:15 | NUR ---
Dr Britt at bedside to assess patient
[2020-04-29] MEDS: VANCOMYCIN 1.25 GM in SODIUM CHLORIDE 0.9% 250 ML IV SCH (20:13)
[2020-04-30] VITALS (23 sets, daily range): BP systolic 111–171; BP diastolic 46–67
[2020-04-30] MEDS: ACETYLCYSTEINE 10% 100MG/ML 4ML VIAL IH SCH ×4 (01:59→19:58)
[2020-04-30] MEDS: ALBUTEROL SULFATE 0.083% 2.5 MG/3 ML INH IH SCH ×4 (01:59→19:58)
[2020-04-30] MEDS: FENTANYL 2500MCG+NS 250ML 250 ML IV SCH (02:45)
[2020-04-30] MEDS: INSULIN HUMULIN R 100 UNIT/ML 3ML SQ SCH ×4 (03:00→17:28)
[2020-04-30] MEDS: MEROPENEM 1 GM VIAL IVP SCH ×2 (03:01→15:21)
[2020-04-30 06:15] LABS: BASOPHILS % (AUTO) 0.2 % (0.0-5.0); EOSINOPHILS % (AUTO) 0.8 % (0.0-8.0); HEMATOCRIT 30.6 % (36-48); LYMPHOCYTES % (AUTO) 12.5 % (21.0-51.0); MEAN CORPUSCULAR HEMOGLOBIN 26.8 pg (27.0-33.0); MEAN CORPUSCULAR HGB CONC 29.4 g/dL (32.0-36.0); MEAN CORPUSCULAR VOLUME 91.1 fL (79-99); MONOCYTES % (AUTO) 3.6 % (3.0-13.0); NEUTROPHILS % (AUTO) 80.7 % (40.0-77.0); PLATELET COUNT (AUTO) 161 K/uL (130-400); RED BLOOD CELL COUNT(AUTO) 3.36 MIL/uL (4.00-5.50); RED CELL DISTRIBUTION WIDTH 16.5 % (11.0-15.5); WHITE BLOOD COUNT (AUTO) 13.3 K/uL (4.8-10.8)
[2020-04-30] MEDS: METRONIDAZOLE 500MG/100ML BAG 100 ML IV SCH ×3 (06:30→21:26)
[2020-04-30 06:31] LABS: ALBUMIN 1.2 g/dL (3.5-5.0); BILIRUBIN,TOTAL 0.5 mg/dL (0.2-1.0); CREATININE 0.7 mg/dL (0.5-1.5); MAGNESIUM 1.6 mg/dL (1.80-2.40); PHOSPHORUS 2.5 mg/dL (2.5-4.9); POTASSIUM 3.6 mmol/L (3.5-5.1); TOTAL PROTEIN, SERUM 5.7 g/dL (6.0-8.3)
[2020-04-30] MEDS: MAGNESIUM 2GM PREMIX 50ML 50 ML IV PRN (07:10)
[2020-04-30] MEDS: DOXYCYCLINE HYCLATE 100 MG TABLET PO SCH ×2 (08:26→21:26)
[2020-04-30] MEDS: FAMOTIDINE/PF 20 MG/2 ML VIAL IV SCH ×2 (08:26→21:25)
[2020-04-30] MEDS: ZINC SULFATE 220 CAPSULE PO SCH (08:26)
[2020-04-30] MEDS: ASCORBIC ACID 500 MG TAB PO SCH (08:26)
[2020-04-30] MEDS: ENOXAPARIN SODIUM 40 MG/0.4 ML SYRINGE SQ SCH (08:27)
[2020-04-30] MEDS: HONEY 1 APPL/ML TUBE TP SCH (08:30)
[2020-04-30] MEDS: LACTULOSE 20 GM/30 ML UDCUP PO SCH ×2 (08:47→21:25)
[2020-04-30] MEDS: VANCOMYCIN 1.25 GM in SODIUM CHLORIDE 0.9% 250 ML IV SCH ×2 (08:52→21:26)
[2020-04-30] MEDS: INSULIN GLARGINE 100 UNITS/ML 10 ML VIAL SQ SCH (08:53)
[2020-04-30 12:22] LABS: ABG BASE EXCESS 2.4 mmol/L (-2.0-3.0); ABG HCO3 26.1 mmol/L (21.0-28.0); ABG OXYGEN SATURATION 93.6 % (95.0-99.0); ABG PCO2 37 mmHg (32-45)
[2020-05-01] VITALS (24 sets, daily range): BP systolic 133–174; BP diastolic 49–73
[2020-05-01] MEDS: ALBUTEROL SULFATE 0.083% 2.5 MG/3 ML INH IH SCH ×5 (00:46→23:09)
[2020-05-01] MEDS: INSULIN HUMULIN R 100 UNIT/ML 3ML SQ SCH ×5 (00:46→23:56)
[2020-05-01] MEDS: ACETYLCYSTEINE 10% 100MG/ML 4ML VIAL IH SCH ×5 (00:46→23:09)
[2020-05-01] MEDS: MEROPENEM 1 GM VIAL IVP SCH ×2 (04:04→17:59)
[2020-05-01 04:19] LABS: ABG BASE EXCESS 1.7 mmol/L (-2.0-3.0); ABG HCO3 25.3 mmol/L (21.0-28.0); ABG OXYGEN SATURATION 91.9 % (95.0-99.0); ABG PCO2 37 mmHg (32-45)
[2020-05-01] MEDS: METRONIDAZOLE 500MG/100ML BAG 100 ML IV SCH ×3 (05:15→21:26)
[2020-05-01 05:47] LABS: BASOPHILS % (AUTO) 0.2 % (0.0-5.0); EOSINOPHILS % (AUTO) 0.2 % (0.0-8.0); HEMATOCRIT 31.9 % (36-48); LYMPHOCYTES % (AUTO) 8.6 % (21.0-51.0); MEAN CORPUSCULAR HEMOGLOBIN 27.3 pg (27.0-33.0); MEAN CORPUSCULAR HGB CONC 29.8 g/dL (32.0-36.0); MEAN CORPUSCULAR VOLUME 91.7 fL (79-99); MONOCYTES % (AUTO) 4.2 % (3.0-13.0); NEUTROPHILS % (AUTO) 85.3 % (40.0-77.0); PLATELET COUNT (AUTO) 183 K/uL (130-400); RED BLOOD CELL COUNT(AUTO) 3.48 MIL/uL (4.00-5.50); RED CELL DISTRIBUTION WIDTH 16.2 % (11.0-15.5); WHITE BLOOD COUNT (AUTO) 12.1 K/uL (4.8-10.8)
[2020-05-01 06:36] LABS: ALBUMIN 1.4 g/dL (3.5-5.0); BILIRUBIN,TOTAL 0.5 mg/dL (0.2-1.0); CREATININE 0.6 mg/dL (0.5-1.5); PHOSPHORUS 2.6 mg/dL (2.5-4.9); TOTAL PROTEIN, SERUM 6.1 g/dL (6.0-8.3)
[2020-05-01 06:38] LABS: POTASSIUM 2.7 mmol/L (3.5-5.1)
[2020-05-01] MEDS: POTASSIUM CHLORIDE 10% ELIXIR 20 MEQ/15 ML UDCUP PO PRN (06:46)
[2020-05-01] MEDS: POTASSIUM CHLORIDE 20MEQ/100ML 100 ML IV PRN (06:46)
[2020-05-01] MEDS: HONEY 1 APPL/ML TUBE TP SCH (08:57)
[2020-05-01] MEDS: LACTULOSE 20 GM/30 ML UDCUP PO SCH (09:00)
[2020-05-01] MEDS: FAMOTIDINE/PF 20 MG/2 ML VIAL IV SCH ×2 (09:04→19:42)
[2020-05-01] MEDS: ZINC SULFATE 220 CAPSULE PO SCH (09:04)
[2020-05-01] MEDS: ASCORBIC ACID 500 MG TAB PO SCH (09:04)
[2020-05-01] MEDS: DOXYCYCLINE HYCLATE 100 MG TABLET PO SCH ×2 (09:04→19:42)
[2020-05-01] MEDS: INSULIN GLARGINE 100 UNITS/ML 10 ML VIAL SQ SCH (09:06)
[2020-05-01] MEDS: VANCOMYCIN 1GM+NS 250ML 250 ML IV SCH ×2 (10:00→20:02)
[2020-05-01] MEDS: ENOXAPARIN SODIUM 40 MG/0.4 ML SYRINGE SQ SCH (10:08)
[2020-05-01] MEDS ORDERED: LACTULOSE 20 GM/30 ML UDCUP PO PRN (15:15)
--- NOTE | 2020-05-01 16:45 | NUR ---
DYSPHAGIA EVAL COMPLETED. +S/S OF ASPIRATION WITH SOLIDS AT THIS TIME. RECOMMEND PUREED SOLIDS, THIN LIQUIDS, PILLS WHOLE WITH LIQUIDS TOLERATED. RECOMMEND: DYSPHAGIA THERAPY 3-5XWEEK TO INCREASE PHARYNGEAL SWALLOW: LTG#1: Pt WILL TOLERATE LEAST RESTRICTIVE DIET TO MEET NUTRITION/HYDRATION WITH NO S/S OF ASPIRATION. LTG#2: SKILLED EDUCATION Pt/FAMILY/STAFF STG#1: Pt WILL PARTICIPATE IN LARYNGEAL ELEVATION/EXCURSION EXERCISES WITH 80% ACCURACY. STG#2: Pt WILL TOLERATE THERAPEUTIC TRIALS OF MECHANICAL SOFT WITH NO OVERT S/S OF ASPIRATION. STG#3: SKILLED EDUCATION Pt/FAMILY/STAFF. ICE CREAM FREEZER HELPER COORDINATED RESULTS AND RECOMMENDATIONS WITH PATIENT AND NURSE KADE. ICE CREAM FREEZER HELPER EDUCATED PATIENT OF RISKS AND CONSEQUENCES OF ASPIRATION. ALL QUESTIONS ANSWERED AT THIS TIME. Addendum: 05/01/[address]RISTINA GALINDO Amended: Links added.
[2020-05-01] MEDS: ACETAMINOPHEN ELIXIR 650 MG/20.3 ML UDCUP PO PRN (20:43)
[2020-05-02] VITALS (18 sets, daily range): BP systolic 141–166; BP diastolic 55–67
[2020-05-02] MEDS: ACETAMINOPHEN ELIXIR 650 MG/20.3 ML UDCUP PO PRN (00:47)
[2020-05-02] MEDS: MEROPENEM 1 GM VIAL IVP SCH ×2 (03:07→15:45)
[2020-05-02 03:49] LABS: BASOPHILS % (AUTO) 0.2 % (0.0-5.0); EOSINOPHILS % (AUTO) 0.8 % (0.0-8.0); HEMATOCRIT 31.6 % (36-48); LYMPHOCYTES % (AUTO) 10.2 % (21.0-51.0); MEAN CORPUSCULAR HEMOGLOBIN 26.8 pg (27.0-33.0); MEAN CORPUSCULAR HGB CONC 30.1 g/dL (32.0-36.0); MONOCYTES % (AUTO) 4.3 % (3.0-13.0); NEUTROPHILS % (AUTO) 83.2 % (40.0-77.0); PLATELET COUNT (AUTO) 230 K/uL (130-400); RED BLOOD CELL COUNT(AUTO) 3.55 MIL/uL (4.00-5.50); RED CELL DISTRIBUTION WIDTH 15.9 % (11.0-15.5); WHITE BLOOD COUNT (AUTO) 12.9 K/uL (4.8-10.8)
[2020-05-02 04:01] LABS: CREATININE 0.7 mg/dL (0.5-1.5)
[2020-05-02 04:02] LABS: POTASSIUM 2.4 mmol/L (3.5-5.1)
[2020-05-02] MEDS: POTASSIUM CHLORIDE 20MEQ/100ML 100 ML IV PRN ×4 (04:05→09:53)
[2020-05-02] MEDS: METRONIDAZOLE 500MG/100ML BAG 100 ML IV SCH ×3 (06:16→20:19)
[2020-05-02] MEDS: ACETYLCYSTEINE 10% 100MG/ML 4ML VIAL IH SCH ×4 (06:17→23:45)
[2020-05-02] MEDS: ALBUTEROL SULFATE 0.083% 2.5 MG/3 ML INH IH SCH ×4 (06:17→23:45)
[2020-05-02] MEDS: INSULIN HUMULIN R 100 UNIT/ML 3ML SQ SCH ×4 (06:17→20:21)
[2020-05-02] MEDS: ZINC SULFATE 220 CAPSULE PO SCH (08:13)
[2020-05-02] MEDS: DOXYCYCLINE HYCLATE 100 MG TABLET PO SCH ×2 (08:13→20:19)
[2020-05-02] MEDS: FAMOTIDINE/PF 20 MG/2 ML VIAL IV SCH ×2 (08:13→20:19)
[2020-05-02] MEDS: ASCORBIC ACID 500 MG TAB PO SCH (08:13)
[2020-05-02] MEDS: ENOXAPARIN SODIUM 40 MG/0.4 ML SYRINGE SQ SCH (08:14)
[2020-05-02] MEDS: HONEY 1 APPL/ML TUBE TP SCH (08:16)
[2020-05-02] MEDS: VANCOMYCIN 1GM+NS 250ML 250 ML IV SCH ×2 (08:16→20:19)
[2020-05-02] MEDS: INSULIN GLARGINE 100 UNITS/ML 10 ML VIAL SQ SCH (08:18)
[2020-05-02] MEDS: ACETAMINOPHEN 325 MG TAB PO PRN (10:32)
[2020-05-02] MEDS: POTASSIUM CHLORIDE 10% ELIXIR 20 MEQ/15 ML UDCUP PO PRN (12:27)
--- NOTE | 2020-05-02 13:15 | NUR ---
Dr Britt at bedside to assess patient, new orders given
[2020-05-02] MEDS: POTASSIUM CHLORIDE 20 MEQ ERTAB PO PRN ×2 (14:46→19:01)
--- NOTE | 2020-05-02 15:30 | NUR ---
SWALLOWING TREATMENT COMPLETED S: Pt COOPERATIVE WITH THERAPEUTIC SWALLOWING GOALS. Pt RECEIVING OXYGEN VIA NC. CURRENT DIET OF PUREED SOLIDS WITH THIN LIQUIDS (DOWNGRADED TO NECTAR THICK LIQUIDS). Pt STABLE AND IN GOOD RESPIRATORY STATUS TO PROCEED WITH THERAPY. 0: Pt CURRENTLY TARGETING SWALLOWING GOALS, RESULTS ARE FOLLOWS: 1. Pt PARTICIPATED IN LARYNGEAL ELEVATION/EXCURSION EXERCISES WITH 60% ACCURACY. 2. Pt PARTICIPATED IN THERAPEUTIC TRIALS OF MECHANICAL SOFT X3 WITH NO S/S OF ASPIRATION. 3. SKILLED EDUCATION Pt/FAMILY/STAFF: COMPLETED A: PATIENT GIVEN VERBAL CUES TO COMPLETE TASKS. PATIENT CONTINUES WITH BREATHY VOICE AND DECREASED LARYNGEAL ELEVATION/EXCURSION DURING MANUAL PALPATION. PATIENT WITH DELAYED AND DECREASED COUGH RESPONSE X1 WITH THIN LIQUIDS. PATIENT IMPULSIVE WITH LIQUIDS AND UNABLE TO MANIPULATE BOLUS BEFORE PHARYNGEAL RESPONSE AT THIS TIME. AVIATION ELECTRICAL TECHNICIAN EDUCATED Pt ON RISKS AND CONSEQUENCES OF ASPIRATION. Pt VERBALIZED UNDERSTANDING AND COOPERATION WITH SWALLOWING GOALS. P: PATIENT DOWNGRADED TO NECTAR THICK LIQUIDS SECONDARY TO EPISODES OF CONFUSION AND WITH DIFFICULTIES FOLLOWING COMPENSATORY STRATEGIES FOR SAFE SWALLOWS. RECOMMEND THE CONTINUATION OF PUREED SOLIDS AND PILLS CRUSHED WITH APPLESAUCE UNTIL STATUS IMPROVES. AVIATION ELECTRICAL TECHNICIAN WILL CONTINUE TO FOLLOW Pt DURING THE LENGTH OF STAY IN THE HOSPITAL TO CONTINUE ADDRESSING SWALLOWING GOALS. AVIATION ELECTRICAL TECHNICIAN COORDINATED WITH NURSE SERRA. Addendum: 05/02/[address] CHRISTINA GALINDO Amended: Links added.
--- NOTE | 2020-05-02 16:10 | NUR ---
Report given to WILFRIDO Lozano. Transferred to room 426 via bed.
[2020-05-02] MEDS: ONDANSETRON HCL 4 MG/2 ML VIAL IV PRN ×2 (19:00→20:25)
[2020-05-02] MEDS ORDERED: SODIUM CHLORIDE 3% FOR INHALATION 4 ML/AMP VIAL.NEB IH ONE ×2 (23:35→23:48)
[2020-05-03] VITALS (7 sets, daily range): BP systolic 128–138; BP diastolic 59–76
[2020-05-03] MEDS: MEROPENEM 1 GM VIAL IVP SCH ×2 (03:40→15:46)
[2020-05-03] MEDS: ACETAMINOPHEN ELIXIR 650 MG/20.3 ML UDCUP PO PRN (03:42)
--- NOTE | 2020-05-03 04:28 | NUR ---
patient alert and oriented x 3 all night, [facility] and i move patient every 2 hours to her sides to prevent back pain and place pillows on her head, back, arms, and in between her legs. patient had a bowel movement tonight. i was able to replace her potassium. i cleaned patient's back wound, coccyx and perineal wound with saline, medihoney, allevyn foam as well as took pictures and placed them on the chart. patient's isabel urine output is 1,300 ml of dark dolores urine. cleaned patient's nose every 4 hours because she complains that her nose is dirty and dry. called respiratory therapistRobbie at 22:00 to help me obtain a sputum culture. the patient coughs, but cannot expectorate sputum for the sputum culture. still pending this culture
[2020-05-03] MEDS: INSULIN HUMULIN R 100 UNIT/ML 3ML SQ SCH ×4 (05:27→21:00)
[2020-05-03 05:57] LABS: BASOPHILS % (AUTO) 0.1 % (0.0-5.0); EOSINOPHILS % (AUTO) 0.6 % (0.0-8.0); HEMATOCRIT 32.5 % (36-48); LYMPHOCYTES % (AUTO) 8.9 % (21.0-51.0); MEAN CORPUSCULAR HEMOGLOBIN 27.1 pg (27.0-33.0); MEAN CORPUSCULAR HGB CONC 30.5 g/dL (32.0-36.0); MONOCYTES % (AUTO) 3.9 % (3.0-13.0); NEUTROPHILS % (AUTO) 85.6 % (40.0-77.0); PLATELET COUNT (AUTO) 279 K/uL (130-400); RED BLOOD CELL COUNT(AUTO) 3.65 MIL/uL (4.00-5.50); RED CELL DISTRIBUTION WIDTH 15.6 % (11.0-15.5)
[2020-05-03] MEDS: ALBUTEROL SULFATE 0.083% 2.5 MG/3 ML INH IH SCH ×4 (06:25→23:04)
[2020-05-03] MEDS: ACETYLCYSTEINE 10% 100MG/ML 4ML VIAL IH SCH ×4 (06:25→23:04)
[2020-05-03 06:26] LABS: CREATININE 0.6 mg/dL (0.5-1.5); POTASSIUM 3.4 mmol/L (3.5-5.1)
[2020-05-03] MEDS: POTASSIUM CHLORIDE 10% ELIXIR 20 MEQ/15 ML UDCUP PO PRN ×2 (06:35→12:16)
[2020-05-03] MEDS ORDERED: SODIUM CHLORIDE 3% FOR INHALATION 4 ML/AMP VIAL.NEB IH ONE ×2 (09:17→11:51)
[2020-05-03] MEDS: ASCORBIC ACID 500 MG TAB PO SCH (09:40)
[2020-05-03] MEDS: ZINC SULFATE 220 CAPSULE PO SCH (09:40)
[2020-05-03] MEDS: DOXYCYCLINE HYCLATE 100 MG TABLET PO SCH ×2 (09:40→21:07)
[2020-05-03] MEDS: FAMOTIDINE/PF 20 MG/2 ML VIAL IV SCH ×2 (09:40→21:07)
[2020-05-03] MEDS: INSULIN GLARGINE 100 UNITS/ML 10 ML VIAL SQ SCH (09:41)
[2020-05-03] MEDS: ENOXAPARIN SODIUM 40 MG/0.4 ML SYRINGE SQ SCH (09:42)
[2020-05-03] MEDS: HONEY 1 APPL/ML TUBE TP SCH (09:42)
[2020-05-03] MEDS: VANCOMYCIN 1GM+NS 250ML 250 ML IV SCH ×2 (10:18→21:07)
[2020-05-03] MEDS: ONDANSETRON HCL 4 MG/2 ML VIAL IV PRN (11:17)
--- NOTE | 2020-05-03 16:00 | NUR ---
SWALLOW TREATMENT COMPLETED. RECOMMEND MECHANICAL SOFT/CHOPPED, THIN LIQUIDS; PILLS WHOLE WITH LIQUIDS. S:Pt REPOSITIONED IN BED BY INSURANCE SALES EXECUTIVE AND HOME INSPECTOR TO 90 DEGREES. PT COOPERATIVE DURING THE SESSION. Pt WITH HOARSE VOCAL QUALITY AT THIS TIME. O: Pt CURRENTLY TARGETING DYSARTHRIA GOALS. RESULTS ARE FOLLOWS: Pt PARTICIPATED IN THERAPEUTIC TRIALS OF ADVANCED TEXTURES OF MECHANICAL SOFT X10 (4OZ) WITH ADEQUATE ROTARY MOTION DURING MASTICATION, TIMELY PHARYNGEAL RESPONSE TRIGGER, NO OVERT S/S OF ASPIRATION PRESENT AT THE TIME OF THE TRIALS. Pt WITH IMPROVED MENTATION. A: Pt WITH IMPROVED PHARYNGEAL RESPONSE TRIGGER AND OVERALL TOLERANCE FOR SOLIDS AT THIS TIME. P: RECOMMEND DIET UPGRADE TO MECHANICAL SOFT/CHOPPED, THIN LIQUIDS, PILLS WHOLE WITH LIQUIDS. RECOMMEND CONTINUED SKILLED SPEECH THERAPY TARGETING SWALLOWING 3-5XWK 4WKS TOLERATED. INSURANCE SALES EXECUTIVE COORDINATED WITH NURSE OSWALD. Addendum: 05/03/20 at [address] Amended: Links added.
--- NOTE | 2020-05-03 16:10 | NUR ---
RESTING IN LEFT SIDE-LYING POSITION WITH EYES CLOSED, RESP.'S EVEN AND UNLABORED. CALL LIGHT NEAR PT.'S HAND. BED LOW, SIDE RAILS UP X3.
[2020-05-04 03:25] VITALS: BP 143/65
[2020-05-04 03:54] LABS: BASOPHILS % (AUTO) 0.2 % (0.0-5.0); EOSINOPHILS % (AUTO) 0.5 % (0.0-8.0); HEMATOCRIT 30.6 % (36-48); LYMPHOCYTES % (AUTO) 8.8 % (21.0-51.0); MEAN CORPUSCULAR HEMOGLOBIN 27.3 pg (27.0-33.0); MEAN CORPUSCULAR VOLUME 87.9 fL (79-99); MONOCYTES % (AUTO) 3.2 % (3.0-13.0); NEUTROPHILS % (AUTO) 86.2 % (40.0-77.0); PLATELET COUNT (AUTO) 291 K/uL (130-400); RED BLOOD CELL COUNT(AUTO) 3.48 MIL/uL (4.00-5.50); RED CELL DISTRIBUTION WIDTH 15.7 % (11.0-15.5); WHITE BLOOD COUNT (AUTO) 15.4 K/uL (4.8-10.8)
[2020-05-04 04:11] LABS: ALBUMIN 1.5 g/dL (3.5-5.0); BILIRUBIN,TOTAL 0.4 mg/dL (0.2-1.0); CREATININE 0.5 mg/dL (0.5-1.5)
[2020-05-04] MEDS: MEROPENEM 1 GM VIAL IVP SCH ×2 (04:45→16:01)
[2020-05-04] MEDS: POTASSIUM CHLORIDE 20MEQ/100ML 100 ML IV PRN (05:09)
[2020-05-04] MEDS: INSULIN HUMULIN R 100 UNIT/ML 3ML SQ SCH ×4 (06:05→21:00)
[2020-05-04] MEDS: ACETYLCYSTEINE 10% 100MG/ML 4ML VIAL IH SCH ×3 (06:40→18:00)
[2020-05-04] MEDS: ALBUTEROL SULFATE 0.083% 2.5 MG/3 ML INH IH SCH ×3 (06:40→18:00)
[2020-05-04 08:02] VITALS: BP 134/63
[2020-05-04] MEDS: ASCORBIC ACID 500 MG TAB PO SCH (08:52)
[2020-05-04] MEDS: FAMOTIDINE/PF 20 MG/2 ML VIAL IV SCH ×2 (08:52→21:12)
[2020-05-04] MEDS: ZINC SULFATE 220 CAPSULE PO SCH (08:52)
[2020-05-04] MEDS: DOXYCYCLINE HYCLATE 100 MG TABLET PO SCH ×2 (08:52→21:12)
[2020-05-04] MEDS: ENOXAPARIN SODIUM 40 MG/0.4 ML SYRINGE SQ SCH (08:53)
[2020-05-04] MEDS: POTASSIUM CHLORIDE 10% ELIXIR 20 MEQ/15 ML UDCUP PO PRN ×3 (08:54→14:03)
[2020-05-04] MEDS: VANCOMYCIN 1GM+NS 250ML 250 ML IV SCH ×2 (08:55→21:12)
[2020-05-04] MEDS: INSULIN GLARGINE 100 UNITS/ML 10 ML VIAL SQ SCH (08:56)
[2020-05-04] MEDS: HONEY 1 APPL/ML TUBE TP SCH (08:56)
--- NOTE | 2020-05-04 09:30 | NUR ---
FOLLOW UP COMPLETED. Pt SLEEPY THIS AM WHICH RESULTED IN LOW P.O. Pt CURRENTLY ON MECHANICAL SOFT/CHOPPED, THIN LIQUIDS. PIPELINE DISPATCHER WILL CONTINUE TO FOLLOW Pt. Pt ASSIST Pt WITH P.O. AT THIS TIME. Addendum: 05/04/20 at 1301 by EMILY AGOSTO, SPT ST Amended: Links added.
[2020-05-04 11:00] VITALS: BP 132/66
[2020-05-04 16:00] VITALS: BP 123/58
[2020-05-04 20:00] VITALS: BP 137/63
[2020-05-05] VITALS (7 sets, daily range): BP systolic 117–143; BP diastolic 51–63
[2020-05-05] MEDS: MEROPENEM 1 GM VIAL IVP SCH ×2 (04:01→16:43)
[2020-05-05] MEDS: INSULIN HUMULIN R 100 UNIT/ML 3ML SQ SCH ×4 (05:25→21:58)
[2020-05-05] MEDS: ACETYLCYSTEINE 10% 100MG/ML 4ML VIAL IH SCH ×4 (06:00→23:25)
[2020-05-05] MEDS: ALBUTEROL SULFATE 0.083% 2.5 MG/3 ML INH IH SCH ×5 (06:00→23:24)
[2020-05-05] MEDS: VANCOMYCIN 1GM+NS 250ML 250 ML IV SCH (09:00)
[2020-05-05] MEDS: ASCORBIC ACID 500 MG TAB PO SCH (10:40)
[2020-05-05] MEDS: ZINC SULFATE 220 CAPSULE PO SCH (10:40)
[2020-05-05] MEDS: DOXYCYCLINE HYCLATE 100 MG TABLET PO SCH (10:40)
[2020-05-05] MEDS: FAMOTIDINE/PF 20 MG/2 ML VIAL IV SCH ×2 (10:40→21:47)
[2020-05-05] MEDS: ENOXAPARIN SODIUM 40 MG/0.4 ML SYRINGE SQ SCH (10:41)
[2020-05-05] MEDS: INSULIN GLARGINE 100 UNITS/ML 10 ML VIAL SQ SCH (10:43)
[2020-05-05] MEDS: HONEY 1 APPL/ML TUBE TP SCH (10:44)
--- NOTE | 2020-05-05 15:06 | NUR ---
FOLLOW UP COMPLETED. Pt CURRENTLY TOLERATING MECHANICAL SOFT/CHOPPED, THIN LIQUID DIET. NO OVERT S/S OF ASPIRATION. RECOMMEND CONTINUED DIET. PRECIPITATE WASHER COORDINATED WITH NURSE BUCIO. PRECIPITATE WASHER WILL CONTINUE TO FOLLOW Pt. Addendum: 05/05/20 at 1512 by EMILY AGOSTO, SPT ST Amended: Links added.
--- NOTE | 2020-05-05 20:00 | NUR ---
Received patient Received patient, lying asleep in bed. VSS,Patient appears to be in no acute distress at this time. Bed in lowest position, wheels locked, possessions and call light within reach. Will continue with plan of care
[2020-05-05] MEDS: VANCOMYCIN 1.25 GM in SODIUM CHLORIDE 0.9% 250 ML IV SCH (21:53)
[2020-05-06 03:33] VITALS: BP 131/57
[2020-05-06] MEDS: MEROPENEM 1 GM VIAL IVP SCH ×2 (04:29→16:44)
[2020-05-06] MEDS: INSULIN HUMULIN R 100 UNIT/ML 3ML SQ SCH ×4 (06:44→20:41)
[2020-05-06] MEDS: ALBUTEROL SULFATE 0.083% 2.5 MG/3 ML INH IH SCH ×4 (07:32→23:12)
[2020-05-06] MEDS: ACETYLCYSTEINE 10% 100MG/ML 4ML VIAL IH SCH ×4 (07:33→23:12)
[2020-05-06 07:40] VITALS: BP 134/60
[2020-05-06] MEDS: ASCORBIC ACID 500 MG TAB PO SCH (10:15)
[2020-05-06] MEDS: FAMOTIDINE/PF 20 MG/2 ML VIAL IV SCH ×2 (10:15→20:39)
[2020-05-06] MEDS: ZINC SULFATE 220 CAPSULE PO SCH (10:15)
[2020-05-06] MEDS: VANCOMYCIN 1.25 GM in SODIUM CHLORIDE 0.9% 250 ML IV SCH ×2 (10:16→20:42)
[2020-05-06] MEDS: INSULIN GLARGINE 100 UNITS/ML 10 ML VIAL SQ SCH (10:22)
[2020-05-06] MEDS: ENOXAPARIN SODIUM 40 MG/0.4 ML SYRINGE SQ SCH (10:23)
[2020-05-06] MEDS: HONEY 1 APPL/ML TUBE TP SCH (10:23)
[2020-05-06 12:00] VITALS: BP 123/58
--- NOTE | 2020-05-06 13:22 | NUR ---
SWALLOWING TREATMENT COMPLETED S: Pt COOPERATIVE DURING ALL ACTIVITIES. Pt SELF-FED DURING BREAKFAST PER NURSE BUCIO. 0: Pt CURRENTLY TARGETING SWALLOWING GOALS, RESULTS ARE FOLLOWS: Pt PARTICIPATED IN LARYNGEAL ELEVATION/EXCURSION EXERCISES WITH 60% ACCURACY. 2. Pt PARTICIPATED IN THERAPEUTIC TRIALS OF MECHANICAL SOFT X10 AND THIN LIQUIDS VIA CUP SIP X5 WITH NO S/S OF ASPIRATION. Pt COMPLETED SELF-FEEDING WITH MINIMUM ASSISTANCE BY FITNESS COORDINATOR. 3. SKILLED EDUCATION Pt/FAMILY/STAFF: COMPLETED A: PATIENT GIVEN VERBAL CUES TO COMPLETE TASKS. PATIENT CONTINUES WITH BREATHY VOICE AND DECREASED LARYNGEAL ELEVATION/EXCURSION DURING MANUAL PALPATION. P: RECOMMEND CONTINUED MECHANICAL SOFT/CHOPPED, THIN LIQUIDS. SKILLED SPEECH THERAPY S3-5XWK IS RECOMMENDED. FITNESS COORDINATOR COORDINATED WITH NURSE BUCIO AT THIS TIME. Addendum: 05/06/20 at 1326 by EMILY AGOSTO, [facility] Amended: Links added.
[2020-05-06 16:00] VITALS: BP 139/64
[2020-05-06 20:17] VITALS: BP 158/71
--- NOTE | 2020-05-06 22:15 | NUR ---
WOUND DRESSINGS WOUND DRESSING DONE TO UPPER BACK, CLEANSED AND PLACED DRY PAD, SECURED WITH TAPE. ALLEVYN x2 PLACED ON BUTTOCKS WITH [facility]. RIGHT LATERAL ABDOMINAL WOUNDS CLEANSED AND PLACED DRY PAD, SECURED WITH TAPE. NEW WOUND ON LEFT FOOT HEEL ULCER, WOUND CONSULT (COMMUNICATION) PLACED VIA ORDERS. OPEN TO AIR AND FOOT ELEVATED WITH PILLOW.
[2020-05-06 23:37] VITALS: BP 153/56
[2020-05-07 03:39] LABS: BASOPHILS % (AUTO) 0.1 % (0.0-5.0); EOSINOPHILS % (AUTO) 0.9 % (0.0-8.0); HEMATOCRIT 30.2 % (36-48); LYMPHOCYTES % (AUTO) 13.6 % (21.0-51.0); MEAN CORPUSCULAR HEMOGLOBIN 26.9 pg (27.0-33.0); MEAN CORPUSCULAR HGB CONC 31.1 g/dL (32.0-36.0); MEAN CORPUSCULAR VOLUME 86.3 fL (79-99); MONOCYTES % (AUTO) 6.3 % (3.0-13.0); NEUTROPHILS % (AUTO) 78.6 % (40.0-77.0); PLATELET COUNT (AUTO) 332 K/uL (130-400); RED CELL DISTRIBUTION WIDTH 15.9 % (11.0-15.5); WHITE BLOOD COUNT (AUTO) 9.2 K/uL (4.8-10.8)
[2020-05-07 03:51] LABS: CREATININE 0.4 mg/dL (0.5-1.5); MAGNESIUM 1.6 mg/dL (1.80-2.40)
[2020-05-07 03:55] LABS: POTASSIUM 2.8 mmol/L (3.5-5.1)
[2020-05-07 03:57] VITALS: BP 159/69
[2020-05-07] MEDS: MEROPENEM 1 GM VIAL IVP SCH ×2 (04:11→16:21)
[2020-05-07] MEDS: POTASSIUM CHLORIDE 20MEQ/100ML 100 ML IV PRN (04:12)
[2020-05-07] MEDS: INSULIN HUMULIN R 100 UNIT/ML 3ML SQ SCH ×4 (05:52→20:23)
[2020-05-07] MEDS: MAGNESIUM 2GM PREMIX 50ML 50 ML IV PRN (05:58)
[2020-05-07] MEDS: ACETYLCYSTEINE 10% 100MG/ML 4ML VIAL IH SCH (07:10)
[2020-05-07] MEDS: ALBUTEROL SULFATE 0.083% 2.5 MG/3 ML INH IH SCH ×4 (07:10→23:05)
[2020-05-07 09:26] VITALS: BP 152/68
[2020-05-07] MEDS: ENOXAPARIN SODIUM 40 MG/0.4 ML SYRINGE SQ SCH (09:45)
[2020-05-07] MEDS: ASCORBIC ACID 500 MG TAB PO SCH (09:47)
[2020-05-07] MEDS: FAMOTIDINE/PF 20 MG/2 ML VIAL IV SCH ×2 (09:47→20:19)
[2020-05-07] MEDS: ZINC SULFATE 220 CAPSULE PO SCH (09:47)
[2020-05-07] MEDS: HONEY 1 APPL/ML TUBE TP SCH (09:50)
[2020-05-07] MEDS: INSULIN GLARGINE 100 UNITS/ML 10 ML VIAL SQ SCH (09:50)
[2020-05-07 11:54] VITALS: BP 142/56
[2020-05-07] MEDS: VANCOMYCIN 1.25 GM in SODIUM CHLORIDE 0.9% 250 ML IV SCH ×2 (12:05→20:19)
--- NOTE | 2020-05-07 12:05 | NUR ---
[facility] consult Patient assessed as ordered; [facility] staff accompanied Dr. Chris for wound evaluation. Dr. Chris provided wound care recommendations and report was given to patient's nurse. Addendum: 05/07/20 at 1207 by ARGELIA STERN RN/ Amended: Links added.
--- NOTE | 2020-05-07 14:09 | NUR ---
RD FOLLOW UP Unknown PO status. Attempt to call Pt's room and RN, no answer. Pt tolerated Breakfast well as per ST note. Monitored labs: K 3.2, BUN 5, Cr 0.4, BG 162, Ca 7.9, Mg 1.60, Alb 1.5. KCl, MgSO4 in place. Pt with severe wounds (Heel - stg 4, DTI, R-Buttock - stg 2). Vitamin C and Zinc SO4 in place. Recommend Increase 500mg Vitamin C to BID Recommend Glucerna BID Recommend Isaac BID for wound healing support. RD to continue to monitor. Please notify as additional nutrition concerns arise. Thank you. Addendum: 05/07/20 at [address] Amended: Links added.
[2020-05-07] MEDS: POTASSIUM CHLORIDE 20 MEQ ERTAB PO PRN ×2 (14:19→15:28)
[2020-05-07] MEDS ORDERED: PHARMACY COMMUNICATION MISC SCH (16:15)
[2020-05-07 16:53] VITALS: BP 147/64
[2020-05-07 20:00] VITALS: BP 141/50
[2020-05-07 23:49] VITALS: BP 153/53
[2020-05-08 03:35] VITALS: BP 145/55
[2020-05-08] MEDS: MEROPENEM 1 GM VIAL IVP SCH (05:14)
[2020-05-08 05:27] LABS: BASOPHILS % (AUTO) 0.3 % (0.0-5.0); HEMATOCRIT 29.9 % (36-48); LYMPHOCYTES % (AUTO) 11.9 % (21.0-51.0); MEAN CORPUSCULAR HEMOGLOBIN 27.2 pg (27.0-33.0); MEAN CORPUSCULAR HGB CONC 31.4 g/dL (32.0-36.0); MEAN CORPUSCULAR VOLUME 86.4 fL (79-99); MONOCYTES % (AUTO) 6.2 % (3.0-13.0); NEUTROPHILS % (AUTO) 80.1 % (40.0-77.0); PLATELET COUNT (AUTO) 340 K/uL (130-400); RED BLOOD CELL COUNT(AUTO) 3.46 MIL/uL (4.00-5.50); RED CELL DISTRIBUTION WIDTH 15.7 % (11.0-15.5); WHITE BLOOD COUNT (AUTO) 7.8 K/uL (4.8-10.8)
[2020-05-08 05:50] LABS: ALBUMIN 1.4 g/dL (3.5-5.0); BILIRUBIN,TOTAL 0.3 mg/dL (0.2-1.0); CREATININE 0.4 mg/dL (0.5-1.5); MAGNESIUM 1.7 mg/dL (1.80-2.40)
[2020-05-08] MEDS: ALBUTEROL SULFATE 0.083% 2.5 MG/3 ML INH IH SCH ×4 (06:00→23:17)
[2020-05-08 06:07] LABS: POTASSIUM 2.9 mmol/L (3.5-5.1)
[2020-05-08] MEDS: POTASSIUM CHLORIDE 20MEQ/100ML 100 ML IV PRN ×2 (06:37→09:32)
[2020-05-08] MEDS: POTASSIUM CHLORIDE 10% ELIXIR 20 MEQ/15 ML UDCUP PO PRN (06:38)
[2020-05-08] MEDS: INSULIN HUMULIN R 100 UNIT/ML 3ML SQ SCH ×4 (06:49→21:23)
[2020-05-08 07:23] VITALS: BP 146/80
[2020-05-08] MEDS: ENOXAPARIN SODIUM 40 MG/0.4 ML SYRINGE SQ SCH (09:32)
[2020-05-08] MEDS: FAMOTIDINE/PF 20 MG/2 ML VIAL IV SCH ×2 (09:32→20:50)
[2020-05-08] MEDS: ZINC SULFATE 220 CAPSULE PO SCH (09:32)
[2020-05-08] MEDS: ASCORBIC ACID 500 MG TAB PO SCH (09:32)
[2020-05-08] MEDS: INSULIN GLARGINE 100 UNITS/ML 10 ML VIAL SQ SCH (09:34)
[2020-05-08] MEDS: HONEY 1 APPL/ML TUBE TP SCH (09:34)
[2020-05-08] MEDS: VANCOMYCIN 1.25 GM in SODIUM CHLORIDE 0.9% 250 ML IV SCH ×2 (09:35→20:50)
[2020-05-08 11:18] VITALS: BP 130/50
[2020-05-08] MEDS: ACETAMINOPHEN 325 MG TAB PO PRN (15:40)
[2020-05-08 16:07] VITALS: BP 153/58
--- NOTE | 2020-05-08 20:00 | NUR ---
PM Assessment Received pt awake watching TV, pleasantly conversant. Routine assessment done, plan of care discuss, per pt claimed PT has been working with her & that she is able to sit on the chair. I then instructed the pt the importance of changing position especially with now presence of multiple ulcers. Pt claimed feeling week & will need assistance to reposition & stated she will notify us. Call light within reach. Pt currently denies discomfort.
[2020-05-08 20:45] VITALS: BP 123/48
[2020-05-09 04:08] VITALS: BP 165/67
[2020-05-09 06:00] LABS: BASOPHILS % (AUTO) 0.3 % (0.0-5.0); EOSINOPHILS % (AUTO) 1.3 % (0.0-8.0); HEMATOCRIT 29.8 % (36-48); LYMPHOCYTES % (AUTO) 12.6 % (21.0-51.0); MEAN CORPUSCULAR HEMOGLOBIN 26.7 pg (27.0-33.0); MEAN CORPUSCULAR HGB CONC 30.9 g/dL (32.0-36.0); MEAN CORPUSCULAR VOLUME 86.6 fL (79-99); MONOCYTES % (AUTO) 6.7 % (3.0-13.0); NEUTROPHILS % (AUTO) 78.5 % (40.0-77.0); PLATELET COUNT (AUTO) 329 K/uL (130-400); RED BLOOD CELL COUNT(AUTO) 3.44 MIL/uL (4.00-5.50); RED CELL DISTRIBUTION WIDTH 15.7 % (11.0-15.5); WHITE BLOOD COUNT (AUTO) 7.1 K/uL (4.8-10.8)
[2020-05-09] MEDS: ALBUTEROL SULFATE 0.083% 2.5 MG/3 ML INH IH SCH ×2 (06:00→11:40)
[2020-05-09] MEDS: INSULIN HUMULIN R 100 UNIT/ML 3ML SQ SCH ×4 (06:13→21:00)
[2020-05-09 06:21] LABS: ALBUMIN 1.5 g/dL (3.5-5.0); BILIRUBIN,TOTAL 0.4 mg/dL (0.2-1.0); CREATININE 0.3 mg/dL (0.5-1.5); POTASSIUM 3.3 mmol/L (3.5-5.1); TOTAL PROTEIN, SERUM 6.1 g/dL (6.0-8.3)
[2020-05-09 08:48] VITALS: BP 125/46
[2020-05-09] MEDS: ASCORBIC ACID 500 MG TAB PO SCH (09:38)
[2020-05-09] MEDS: FAMOTIDINE/PF 20 MG/2 ML VIAL IV SCH ×2 (09:38→20:53)
[2020-05-09] MEDS: ZINC SULFATE 220 CAPSULE PO SCH (09:38)
[2020-05-09] MEDS: ENOXAPARIN SODIUM 40 MG/0.4 ML SYRINGE SQ SCH (09:39)
[2020-05-09] MEDS: HONEY 1 APPL/ML TUBE TP SCH (09:39)
[2020-05-09] MEDS: INSULIN GLARGINE 100 UNITS/ML 10 ML VIAL SQ SCH (09:40)
[2020-05-09] MEDS: POTASSIUM CHLORIDE 20MEQ/100ML 100 ML IV PRN (09:43)
[2020-05-09] MEDS: VANCOMYCIN 1.25 GM in SODIUM CHLORIDE 0.9% 250 ML IV SCH ×2 (11:34→20:53)
[2020-05-09 11:51] VITALS: BP 108/53
[2020-05-09] MEDS: MEROPENEM 1 GM VIAL IVP SCH (12:35)
[2020-05-09 19:23] VITALS: BP 125/52
[2020-05-09 20:32] VITALS: BP 132/60
[2020-05-09 23:44] VITALS: BP 135/55
[2020-05-10] MEDS: MEROPENEM 1 GM VIAL IVP SCH ×2 (01:00→12:23)
[2020-05-10 03:28] VITALS: BP 142/59
[2020-05-10] MEDS: ALBUTEROL SULFATE 0.083% 2.5 MG/3 ML INH IH SCH ×3 (06:00→12:00)
[2020-05-10] MEDS: INSULIN HUMULIN R 100 UNIT/ML 3ML SQ SCH ×4 (06:30→21:50)
[2020-05-10 07:13] LABS: BASOPHILS % (AUTO) 0.3 % (0.0-5.0); HEMATOCRIT 29.4 % (36-48); LYMPHOCYTES % (AUTO) 18.2 % (21.0-51.0); MEAN CORPUSCULAR HEMOGLOBIN 26.7 pg (27.0-33.0); MEAN CORPUSCULAR VOLUME 86.2 fL (79-99); MONOCYTES % (AUTO) 8.3 % (3.0-13.0); NEUTROPHILS % (AUTO) 71.7 % (40.0-77.0); PLATELET COUNT (AUTO) 298 K/uL (130-400); RED BLOOD CELL COUNT(AUTO) 3.41 MIL/uL (4.00-5.50); RED CELL DISTRIBUTION WIDTH 15.9 % (11.0-15.5); WHITE BLOOD COUNT (AUTO) 6.3 K/uL (4.8-10.8)
[2020-05-10 07:20] LABS: ALBUMIN 1.5 g/dL (3.5-5.0); BILIRUBIN,TOTAL 0.4 mg/dL (0.2-1.0); CREATININE 0.6 mg/dL (0.5-1.5); POTASSIUM 3.2 mmol/L (3.5-5.1); TOTAL PROTEIN, SERUM 6.2 g/dL (6.0-8.3)
[2020-05-10 08:00] VITALS: BP 120/50
[2020-05-10] MEDS: ASCORBIC ACID 500 MG TAB PO SCH (09:32)
[2020-05-10] MEDS: FAMOTIDINE/PF 20 MG/2 ML VIAL IV SCH ×2 (09:32→21:50)
[2020-05-10] MEDS: ZINC SULFATE 220 CAPSULE PO SCH (09:32)
[2020-05-10] MEDS: VANCOMYCIN 1.25 GM in SODIUM CHLORIDE 0.9% 250 ML IV SCH ×2 (09:33→21:51)
[2020-05-10] MEDS: INSULIN GLARGINE 100 UNITS/ML 10 ML VIAL SQ SCH (09:34)
[2020-05-10] MEDS: HONEY 1 APPL/ML TUBE TP SCH (09:37)
[2020-05-10] MEDS: ENOXAPARIN SODIUM 40 MG/0.4 ML SYRINGE SQ SCH (09:37)
[2020-05-10 12:00] VITALS: BP 129/58
[2020-05-10] MEDS: POTASSIUM CHLORIDE 20 MEQ ERTAB PO PRN ×2 (12:23→17:39)
--- NOTE | 2020-05-10 14:09 | NUR ---
FOLLOW UP COMPLETED. Pt PARTICIPATING IN P.O WITH SET UP REQUIRED. Pt WITH IMPROVED P.O. INTAKE AND OVERALL TOLERANCE. NO OVERT S/S OF ASPIRATION AT THIS TIME. RECOMMEND CONTINUED MECHANICAL SOFT, THIN LIQUID DIET. SMOKING TOBACCO PACKER HAND WILL CONTINUE TO FOLLOW Pt. Addendum: 05/10/20 at 1411 by EMILY AGOSTO, SPT ST Amended: Links added.
[2020-05-10 16:00] VITALS: BP 128/56
--- NOTE | 2020-05-10 16:20 | NUR ---
WOUND CARE COMPLETED: LEFT HEEL DTI, APPLIED ALLEVYN FOAM PAD AND BILATERAL WAFFLE BOOTS. BUTTOCKS AREAS, CLEANSED WITH NORMAL SALINE, APPLIED BARRIER CREAM AND LARGE ALLEVYN FOAM PAD. RIGHT BELOW BREAST AREA WOUND (DRY SCABS) PAINTED WITH BETADINE AND LEFT OPEN TO AIR. RIGHT POSTERIOR BACK/NECK AREA, CLEANSED WITH NORMAL SALINE, PAT DRY, APPLIED MEDIHONEY, 4X4 GAUZE AND SECURED WITH MEDIPORE TAPE. PATIENT TOLERATED WELL, REPOSITIONED FOR COMFORT. WILL EAT DINNER NOW. REPORTED OFF TO PRIMARY NURSERUPINDER.
[2020-05-10 20:17] VITALS: BP 117/48
[2020-05-10 23:29] VITALS: BP 127/59
[2020-05-11] MEDS: MEROPENEM 1 GM VIAL IVP SCH ×3 (02:20→23:42)
[2020-05-11 04:45] VITALS: BP 153/70
[2020-05-11] MEDS: ALBUTEROL SULFATE 0.083% 2.5 MG/3 ML INH IH SCH ×4 (06:00→23:34)
[2020-05-11] MEDS: INSULIN HUMULIN R 100 UNIT/ML 3ML SQ SCH ×4 (06:20→21:00)
[2020-05-11 08:00] VITALS: BP 136/56
[2020-05-11 08:31] LABS: CREATININE 0.9 mg/dL (0.5-1.5); POTASSIUM 3.6 mmol/L (3.5-5.1)
[2020-05-11] MEDS: ASCORBIC ACID 500 MG TAB PO SCH (09:50)
[2020-05-11] MEDS: ZINC SULFATE 220 CAPSULE PO SCH (09:50)
[2020-05-11] MEDS: FAMOTIDINE/PF 20 MG/2 ML VIAL IV SCH ×2 (09:50→21:42)
[2020-05-11] MEDS: HONEY 1 APPL/ML TUBE TP SCH (09:51)
[2020-05-11] MEDS: ENOXAPARIN SODIUM 40 MG/0.4 ML SYRINGE SQ SCH (09:51)
[2020-05-11] MEDS: INSULIN GLARGINE 100 UNITS/ML 10 ML VIAL SQ SCH (09:52)
[2020-05-11] MEDS: VANCOMYCIN 1.25 GM in SODIUM CHLORIDE 0.9% 250 ML IV SCH ×2 (09:53→21:42)
[2020-05-11] MEDS: NAPROXEN 500 MG TABLET PO PRN (10:02)
[2020-05-11 11:00] VITALS: BP 135/57
--- NOTE | 2020-05-11 11:00 | NUR ---
SWALLOWING TREATMENT COMPLETED S: Pt COOPERATIVE DURING ALL ACTIVITIES. Pt SELF-FED DURING BREAKFAST PER NURSE BUCIO. Pt REPORTS INCREASED WEAKNESS DUE TO DIARRHEA LAST NIGHT. 0: Pt CURRENTLY TARGETING SWALLOWING GOALS, RESULTS ARE FOLLOWS: Pt PARTICIPATED IN LARYNGEAL ELEVATION/EXCURSION EXERCISES WITH 60% ACCURACY. 2. Pt PARTICIPATED IN THERAPEUTIC TRIALS OF MECHANICAL SOFT X10 AND THIN LIQUIDS VIA CUP SIP X5 WITH NO S/S OF ASPIRATION. Pt COMPLETED SELF-FEEDING WITH MINIMUM ASSISTANCE BY MASTIC FLOOR LAYER. 3. SKILLED EDUCATION Pt/FAMILY/STAFF: COMPLETED A: PATIENT GIVEN VERBAL CUES TO COMPLETE TASKS. PATIENT CONTINUES WITH BREATHY VOICE. Pt WITH IMPROVED LARYNGEAL ELEVATION/EXCURSION DURING MANUAL PALPATION. P: RECOMMEND CONTINUED MECHANICAL SOFT/CHOPPED, THIN LIQUIDS. SKILLED SPEECH THERAPY S3-5XWK IS RECOMMENDED. MASTIC FLOOR LAYER COORDINATED WITH NURSE UBCIO AT THIS TIME. Addendum: 05/11/20 at 1330 by EMILY AGOSTO, [facility] ST Amended: Links added.
[2020-05-11] MEDS: MAGNESIUM 2GM PREMIX 50ML 50 ML IV PRN (15:54)
[2020-05-11] MEDS: POTASSIUM CHLORIDE 20 MEQ ERTAB PO PRN ×2 (15:55→18:55)
[2020-05-11 16:00] VITALS: BP 125/57
[2020-05-11 19:51] VITALS: BP 136/62
[2020-05-11 23:18] VITALS: BP 159/64
[2020-05-12 03:45] VITALS: BP 149/74
[2020-05-12] MEDS: ALBUTEROL SULFATE 0.083% 2.5 MG/3 ML INH IH SCH ×2 (06:00→19:42)
[2020-05-12 07:29] LABS: CREATININE 0.8 mg/dL (0.5-1.5); POTASSIUM 3.9 mmol/L (3.5-5.1)
[2020-05-12 08:04] VITALS: BP 138/65
--- NOTE | 2020-05-12 08:45 | NUR ---
AM ASSESSMENT PT LAYING IN BED, HOB ELEVATED 30 DEGREES, RESTING. CONTACT ISOLATION. A/O X 3. NO SOB. NO DISTRESS NOTED. DENIES CHEST PAIN OR DISCOMFORT. DENIES PALPITATIONS. HEATHER PAIN @ THIS TIME. TELE: SR. DENIES N/V AND/OR DIARRHEA. BEDREST. INSTRUCTED TO CALL FOR ASSISTANCE. CALL MANUEL W/IN REACH.
[2020-05-12] MEDS: ZINC SULFATE 220 CAPSULE PO SCH (09:47)
[2020-05-12] MEDS: ASCORBIC ACID 500 MG TAB PO SCH (09:47)
[2020-05-12] MEDS: FAMOTIDINE/PF 20 MG/2 ML VIAL IV SCH ×2 (09:47→21:35)
[2020-05-12] MEDS: HONEY 1 APPL/ML TUBE TP SCH (09:48)
[2020-05-12] MEDS: INSULIN GLARGINE 100 UNITS/ML 10 ML VIAL SQ SCH (09:48)
[2020-05-12] MEDS: ENOXAPARIN SODIUM 40 MG/0.4 ML SYRINGE SQ SCH (09:48)
[2020-05-12] MEDS: INSULIN HUMULIN R 100 UNIT/ML 3ML SQ SCH ×3 (10:32→22:00)
[2020-05-12 11:18] VITALS: BP 125/51
[2020-05-12] MEDS ORDERED: LEVOFLOXACIN 500 MG TABLET PO SCH (12:30)
--- NOTE | 2020-05-12 15:32 | NUR ---
SWALLOWING TREATMENT COMPLETED S: Pt COOPERATIVE DURING ALL ACTIVITIES. Pt SELF-FED DURING THERAPEUTIC TRIALS. Pt REPORTS DOING BETTER WITH P.O. 0: Pt CURRENTLY TARGETING SWALLOWING GOALS, RESULTS ARE FOLLOWS: Pt PARTICIPATED IN LARYNGEAL ELEVATION/EXCURSION EXERCISES WITH 70% ACCURACY. 2. Pt PARTICIPATED IN THERAPEUTIC TRIALS OF MECHANICAL SOFT X10 AND THIN LIQUIDS VIA CUP SIP X5 WITH NO S/S OF ASPIRATION. Pt COMPLETED SELF-FEEDING INDEPENDENTLY AT THIS TIME. 3. SKILLED EDUCATION Pt/FAMILY/STAFF: COMPLETED A: PATIENT GIVEN VERBAL CUES TO COMPLETE TASKS. PATIENT CONTINUES WITH BREATHY VOICE. Pt WITH IMPROVED LARYNGEAL ELEVATION/EXCURSION DURING MANUAL PALPATION. P: RECOMMEND CONTINUED MECHANICAL SOFT/CHOPPED, THIN LIQUIDS. SKILLED SPEECH THERAPY 3-5XWK IS RECOMMENDED. ENTERPRISE CLOUD ARCHITECT COORDINATED WITH NURSE VITALE. Addendum: 05/12/20 at 1535 by EMILY AGOSTO, [facility] ST Amended: Links added.
--- NOTE | 2020-05-12 16:30 | NUR ---
DSG CHANGE FOLLOWING DSG CHANGES DONE @ THIS TIME: 1. UPPER BACK (SPIDER BITE) - MEDIHONEY, GAUZE & TAPE APPLIED. 2. BELOW RT BREAST/RT UPPER ABDOMEN - PAINTED W/BETADINE. 3. SACRAL - BARRIER CREAM & ALLEVYN PAD APPLIED. 4. LT HEEL - ALLEVYN PAD CHANGED. WAFFLE BOOTS, BOTH FEET. PT TOLERATED DSG CHANGES WELL. NO DISTRESS NOTED. PT TO HAVE DINNER @ THIS TIME.
[2020-05-12 17:07] VITALS: BP 149/77
[2020-05-12 19:45] VITALS: BP 111/52
[2020-05-12] MEDS: NAPROXEN 500 MG TABLET PO PRN (21:30)
[2020-05-12] MEDS: DOXYCYCLINE HYCLATE 100 MG TABLET PO SCH (21:35)
[2020-05-13] VITALS (8 sets, daily range): BP systolic 129–154; BP diastolic 52–77
[2020-05-13] MEDS: ALBUTEROL SULFATE 0.083% 2.5 MG/3 ML INH IH SCH ×2 (01:03→07:22)
[2020-05-13] MEDS: ZINC SULFATE 220 CAPSULE PO SCH (06:22)
[2020-05-13] MEDS: INSULIN HUMULIN R 100 UNIT/ML 3ML SQ SCH ×4 (07:18→21:00)
--- NOTE | 2020-05-13 08:15 | NUR ---
AM ASSESSMENT PT LAYING IN BED, WATCHING TV. CONTACT ISOLATION. A/O X 3. FORGETFUL @ TIMES. NO SOB. NO DISTRESS NOTED. DENIES CHEST PAIN OR DISCOMFORT. DENIES PALPITATIONS. TELE: SR. DENIES N/V AND/OR DIARRHEA. 16 FR FC PATENT & DRAINING. BED REST. WAFFLE BOOTS ON. INSTRUCTED TO CALL FOR ASSISTANCE. CALL MANUEL W/IN REACH.
[2020-05-13] MEDS: FAMOTIDINE/PF 20 MG/2 ML VIAL IV SCH ×2 (09:00→21:55)
[2020-05-13] MEDS: DOXYCYCLINE HYCLATE 100 MG TABLET PO SCH ×2 (09:36→21:56)
[2020-05-13] MEDS: ENOXAPARIN SODIUM 40 MG/0.4 ML SYRINGE SQ SCH (09:36)
[2020-05-13] MEDS: LEVOFLOXACIN 500 MG TABLET PO SCH (09:36)
[2020-05-13] MEDS: ASCORBIC ACID 500 MG TAB PO SCH (09:36)
[2020-05-13] MEDS: HONEY 1 APPL/ML TUBE TP SCH (09:37)
[2020-05-13] MEDS: INSULIN GLARGINE 100 UNITS/ML 10 ML VIAL SQ SCH (09:38)
[2020-05-13] MEDS: PANTOPRAZOLE SODIUM 40 MG TABLET.DR PO SCH (09:39)
--- NOTE | 2020-05-13 15:45 | NUR ---
DSG CHANGE FOLLOWING DSG CHANGES DONE @ THIS TIME: 1. UPPER BACK (SPIDER BITE) - MEDIHONEY, GAUZE & TAPE APPLIED. 2. BELOW RT BREAST/RT UPPER ABDOMEN - PAINTED W/BETADINE. 3. SACRAL - BARRIER CREAM & ALLEVYN PAD APPLIED. 4. LT HEEL - ALLEVYN PAD CHANGED. WAFFLE BOOTS, BOTH FEET. PT TOLERATED DSG CHANGES WELL. DENIED ANY PAIN OR DISCOMFORT @ THIS TIME.
[2020-05-14 03:49] VITALS: BP 143/71
[2020-05-14 06:23] LABS: BASOPHILS % (AUTO) 0.2 % (0.0-5.0); EOSINOPHILS % (AUTO) 2.1 % (0.0-8.0); HEMATOCRIT 27.7 % (36-48); LYMPHOCYTES % (AUTO) 24.2 % (21.0-51.0); MEAN CORPUSCULAR HEMOGLOBIN 26.7 pg (27.0-33.0); MEAN CORPUSCULAR HGB CONC 30.7 g/dL (32.0-36.0); MEAN CORPUSCULAR VOLUME 87.1 fL (79-99); MONOCYTES % (AUTO) 12.9 % (3.0-13.0); PLATELET COUNT (AUTO) 209 K/uL (130-400); RED BLOOD CELL COUNT(AUTO) 3.18 MIL/uL (4.00-5.50); RED CELL DISTRIBUTION WIDTH 15.7 % (11.0-15.5); WHITE BLOOD COUNT (AUTO) 4.7 K/uL (4.8-10.8)
[2020-05-14] MEDS: INSULIN HUMULIN R 100 UNIT/ML 3ML SQ SCH ×4 (06:26→21:50)
[2020-05-14 06:37] LABS: CREATININE 0.8 mg/dL (0.5-1.5); POTASSIUM 3.4 mmol/L (3.5-5.1)
[2020-05-14] MEDS: ZINC SULFATE 220 CAPSULE PO SCH (06:44)
[2020-05-14 08:00] VITALS: BP 139/63
[2020-05-14] MEDS: HONEY 1 APPL/ML TUBE TP SCH (09:00)
[2020-05-14] MEDS: FAMOTIDINE/PF 20 MG/2 ML VIAL IV SCH ×2 (09:26→21:25)
[2020-05-14] MEDS: DOXYCYCLINE HYCLATE 100 MG TABLET PO SCH ×2 (09:26→21:25)
[2020-05-14] MEDS: LEVOFLOXACIN 500 MG TABLET PO SCH (09:26)
[2020-05-14] MEDS: ASCORBIC ACID 500 MG TAB PO SCH (09:26)
[2020-05-14] MEDS: ENOXAPARIN SODIUM 40 MG/0.4 ML SYRINGE SQ SCH (09:27)
[2020-05-14] MEDS: INSULIN GLARGINE 100 UNITS/ML 10 ML VIAL SQ SCH (09:44)
[2020-05-14] MEDS: PANTOPRAZOLE SODIUM 40 MG TABLET.DR PO SCH (09:44)
[2020-05-14 11:20] VITALS: BP 136/68
--- NOTE | 2020-05-14 11:27 | NUR ---
FOLLOW UP COMPLETED. Pt TOLERATING CURRENT MECHANICAL SOFT/CHOPPED, THIN LIQUID DIET. NO OVERT S/S OF ASPIRATION PRESENT AT THIS TIME. RECOMMEND CONTINUED P.O. SALES ACCOUNT ASSOCIATE WILL CONTINUE TO FOLLOW Pt. Addendum: 05/14/20 at 1131 by EMILY AGOSTO, SPT ST Amended: Links added.
--- NOTE | 2020-05-14 13:33 | NUR ---
RD FOLLOW UP Pt tolerating Heart healthy Diet order with no report of GI distress, PO intake at 100%. Pt LBM 05/13. Monitored labs:BG 253, Alb 1.5, K 3.4. Vitamin C, Zinc, insulin in place. Recommend 60gm CCD Recommend Isaac BID for wound healing Recommend 60mL ProMod BID Recommend increase 500mg Vitamin C to BID RD to continue to monitor. Please notify as additional nutrition concerns arise. Thank you. Addendum: 05/14/20 at [address] Amended: Links added.
[2020-05-14 16:00] VITALS: BP 138/68
[2020-05-14 20:00] VITALS: BP 141/65
[2020-05-15] VITALS: BP 131/61
[2020-05-15 04:00] VITALS: BP 142/61
[2020-05-15] MEDS: PANTOPRAZOLE SODIUM 40 MG TABLET.DR PO SCH (06:43)
[2020-05-15] MEDS: ZINC SULFATE 220 CAPSULE PO SCH (06:43)
[2020-05-15] MEDS: INSULIN HUMULIN R 100 UNIT/ML 3ML SQ SCH ×5 (07:30→21:59)
[2020-05-15 08:00] VITALS: BP 128/72
[2020-05-15 08:37] LABS: MAGNESIUM 1.6 mg/dL (1.80-2.40); POTASSIUM 3.3 mmol/L (3.5-5.1)
--- NOTE | 2020-05-15 09:00 | NUR ---
ASSESSMENT PT AWAKE AND ALERT, DENIES CHEST PAIN OR DISCOMFORT, NO SOB OR LABORED RESPIRATIONS. PT STATES LESS WEAK, ASSISTANCE WITH ADLS, PT REFUSES WAFFLE BOOTS. MADE AWARE OF IMPORTANCE OF PREVENTING PRESSURE ON HEELS, PT REFUSED TO WEAR. TURNED Q 2 HOURS AND NEEDED, WOUND CARE TO UPPER BACK, ABDOMEN, AND RIGHT HIP DONE ORDERED.
[2020-05-15] MEDS: DOXYCYCLINE HYCLATE 100 MG TABLET PO SCH ×2 (09:55→21:56)
[2020-05-15] MEDS: LEVOFLOXACIN 500 MG TABLET PO SCH (09:55)
[2020-05-15] MEDS: POTASSIUM CHLORIDE 20 MEQ ERTAB PO PRN (09:55)
[2020-05-15] MEDS: ASCORBIC ACID 500 MG TAB PO SCH (09:55)
[2020-05-15] MEDS: FAMOTIDINE/PF 20 MG/2 ML VIAL IV SCH ×2 (09:55→21:56)
[2020-05-15] MEDS: ENOXAPARIN SODIUM 40 MG/0.4 ML SYRINGE SQ SCH (09:56)
[2020-05-15] MEDS: INSULIN GLARGINE 100 UNITS/ML 10 ML VIAL SQ SCH (09:57)
[2020-05-15] MEDS: HONEY 1 APPL/ML TUBE TP SCH (09:58)
[2020-05-15 16:00] VITALS: BP 135/67
[2020-05-15] MEDS: MAGNESIUM 2GM PREMIX 50ML 50 ML IV PRN (17:18)
[2020-05-15] MEDS: POTASSIUM CHLORIDE 10% ELIXIR 20 MEQ/15 ML UDCUP PO PRN (17:18)
[2020-05-15 20:16] VITALS: BP 149/68
[2020-05-15 23:43] VITALS: BP 142/61
[2020-05-16 04:08] VITALS: BP 145/70
[2020-05-16 06:18] LABS: BASOPHILS % (AUTO) 0.2 % (0.0-5.0); EOSINOPHILS % (AUTO) 3.4 % (0.0-8.0); HEMATOCRIT 30.1 % (36-48); LYMPHOCYTES % (AUTO) 23.2 % (21.0-51.0); MEAN CORPUSCULAR HEMOGLOBIN 26.1 pg (27.0-33.0); MEAN CORPUSCULAR HGB CONC 30.2 g/dL (32.0-36.0); MEAN CORPUSCULAR VOLUME 86.5 fL (79-99); MONOCYTES % (AUTO) 11.5 % (3.0-13.0); NEUTROPHILS % (AUTO) 61.1 % (40.0-77.0); PLATELET COUNT (AUTO) 179 K/uL (130-400); RED BLOOD CELL COUNT(AUTO) 3.48 MIL/uL (4.00-5.50); RED CELL DISTRIBUTION WIDTH 15.1 % (11.0-15.5); WHITE BLOOD COUNT (AUTO) 4.7 K/uL (4.8-10.8)
[2020-05-16 06:50] LABS: CREATININE 0.9 mg/dL (0.5-1.5); MAGNESIUM 1.9 mg/dL (1.80-2.40); POTASSIUM 3.8 mmol/L (3.5-5.1)
[2020-05-16] MEDS: PANTOPRAZOLE SODIUM 40 MG TABLET.DR PO SCH (06:57)
[2020-05-16] MEDS: ZINC SULFATE 220 CAPSULE PO SCH (06:57)
[2020-05-16] MEDS: INSULIN HUMULIN R 100 UNIT/ML 3ML SQ SCH ×4 (06:58→21:14)
[2020-05-16 07:51] VITALS: BP 152/68
[2020-05-16] MEDS: LEVOFLOXACIN 500 MG TABLET PO SCH (09:30)
[2020-05-16] MEDS: ASCORBIC ACID 500 MG TAB PO SCH (09:30)
[2020-05-16] MEDS: DOXYCYCLINE HYCLATE 100 MG TABLET PO SCH ×2 (09:30→21:09)
[2020-05-16] MEDS: ACETAMINOPHEN 325 MG TAB PO PRN (09:31)
[2020-05-16] MEDS: FAMOTIDINE/PF 20 MG/2 ML VIAL IV SCH ×2 (09:31→21:09)
[2020-05-16] MEDS: INSULIN GLARGINE 100 UNITS/ML 10 ML VIAL SQ SCH (09:33)
[2020-05-16] MEDS: ENOXAPARIN SODIUM 40 MG/0.4 ML SYRINGE SQ SCH (09:33)
[2020-05-16] MEDS: HONEY 1 APPL/ML TUBE TP SCH (09:53)
[2020-05-16 11:00] VITALS: BP 136/64
--- NOTE | 2020-05-16 13:03 | NUR ---
refused day 2 to sit EOB or attempt standing or transfer. nurse aware Addendum: 05/16/20 at 1304 by HAZEL PITTMAN, PT PT Amended: Links added.
[2020-05-16 16:00] VITALS: BP 137/64
[2020-05-16 20:12] VITALS: BP 123/49
[2020-05-17] VITALS (7 sets, daily range): BP systolic 123–144; BP diastolic 48–79
[2020-05-17] MEDS: ACETAMINOPHEN 325 MG TAB PO PRN (00:10)
[2020-05-17] MEDS: ZINC SULFATE 220 CAPSULE PO SCH (05:11)
[2020-05-17] MEDS: PANTOPRAZOLE SODIUM 40 MG TABLET.DR PO SCH (06:20)
[2020-05-17] MEDS: INSULIN HUMULIN R 100 UNIT/ML 3ML SQ SCH ×4 (06:21→20:43)
[2020-05-17] MEDS: ASCORBIC ACID 500 MG TAB PO SCH (09:03)
[2020-05-17] MEDS: LEVOFLOXACIN 500 MG TABLET PO SCH (09:03)
[2020-05-17] MEDS: DOXYCYCLINE HYCLATE 100 MG TABLET PO SCH ×2 (09:03→20:40)
[2020-05-17] MEDS: ENOXAPARIN SODIUM 40 MG/0.4 ML SYRINGE SQ SCH (09:04)
[2020-05-17] MEDS: FAMOTIDINE/PF 20 MG/2 ML VIAL IV SCH ×2 (09:04→20:40)
[2020-05-17] MEDS: INSULIN GLARGINE 100 UNITS/ML 10 ML VIAL SQ SCH (09:05)
[2020-05-17] MEDS: HONEY 1 APPL/ML TUBE TP SCH (09:05)
--- NOTE | 2020-05-17 20:40 | NUR ---
MEDS SHIFT ASSESSMENT DONE, PLEASE REFER TO CHART. DUE MEDS ADMINISTERED, TOLERATED WELL. CALL LIGHT WITHIN REACH. WILL MONITOR PT. Addendum: 05/18/20 at 0011 by RANULFO SIMS RN RN Amended: Links added.
[2020-05-17] MEDS: ONDANSETRON HCL 4 MG/2 ML VIAL IV PRN (22:13)
--- NOTE | 2020-05-18 02:00 | NUR ---
ROUNDS PT RESTING IN BED. NO DISTRESS NOTED. KEPT COMFORTABLE IN BED. CALL LIGHT WITHIN REACH. CONTINUED BLADDER TRAINING. WILL MONITOR PT.
[2020-05-18 03:51] VITALS: BP 123/59
[2020-05-18] MEDS: PANTOPRAZOLE SODIUM 40 MG TABLET.DR PO SCH (05:51)
[2020-05-18] MEDS: ZINC SULFATE 220 CAPSULE PO SCH (05:51)
[2020-05-18 06:05] LABS: BASOPHILS % (AUTO) 0.2 % (0.0-5.0); EOSINOPHILS % (AUTO) 3.5 % (0.0-8.0); HEMATOCRIT 29.8 % (36-48); LYMPHOCYTES % (AUTO) 25.9 % (21.0-51.0); MEAN CORPUSCULAR HEMOGLOBIN 26.9 pg (27.0-33.0); MEAN CORPUSCULAR HGB CONC 31.5 g/dL (32.0-36.0); MEAN CORPUSCULAR VOLUME 85.1 fL (79-99); MONOCYTES % (AUTO) 11.4 % (3.0-13.0); NEUTROPHILS % (AUTO) 58.3 % (40.0-77.0); PLATELET COUNT (AUTO) 172 K/uL (130-400); WHITE BLOOD COUNT (AUTO) 5.5 K/uL (4.8-10.8)
[2020-05-18 06:21] LABS: CREATININE 1.1 mg/dL (0.5-1.5); POTASSIUM 3.7 mmol/L (3.5-5.1)
[2020-05-18] MEDS: INSULIN HUMULIN R 100 UNIT/ML 3ML SQ SCH ×4 (06:26→21:00)
--- NOTE | 2020-05-18 06:30 | NUR ---
MEDS DUE MEDS ADMINISTERED, TOLERATED WELL. RE-POSITIONED COMFORTABLY IN BED. PT CURRENTLY BEING BLADDER TRAINED, F/C CLAMMED AT THIS TIME. FOR MORE CARE.
[2020-05-18 08:38] VITALS: BP 128/68
[2020-05-18] MEDS: DOXYCYCLINE HYCLATE 100 MG TABLET PO SCH ×2 (08:52→22:06)
[2020-05-18] MEDS: ASCORBIC ACID 500 MG TAB PO SCH (08:52)
[2020-05-18] MEDS: ENOXAPARIN SODIUM 40 MG/0.4 ML SYRINGE SQ SCH (08:52)
[2020-05-18] MEDS: LEVOFLOXACIN 500 MG TABLET PO SCH (08:52)
[2020-05-18] MEDS: FAMOTIDINE/PF 20 MG/2 ML VIAL IV SCH (08:53)
[2020-05-18] MEDS: INSULIN GLARGINE 100 UNITS/ML 10 ML VIAL SQ SCH (08:53)
[2020-05-18] MEDS: HONEY 1 APPL/ML TUBE TP SCH (09:00)
--- NOTE | 2020-05-18 11:27 | NUR ---
CALLED AND SPOKE WITH PATIENT'S SPOUSE, ARIEL ([phone]) AND ASKED HIM TO BRING IN PATIENT'S HOME MEDICATIONS FOR RECONCILIATION. STATED HE WILL BRING THEM THIS AFTERNOON. WILL FOLLOW UP. REPORTED OFF TO WILFRIDO CALLAWAY, PRIMARY NURSE.
[2020-05-18 12:59] VITALS: BP 106/46
[2020-05-18 16:30] VITALS: BP 105/45
[2020-05-18 20:00] VITALS: BP 132/47
[2020-05-18 23:34] VITALS: BP 118/60
[2020-05-19 04:16] VITALS: BP 146/67
[2020-05-19] MEDS: INSULIN HUMULIN R 100 UNIT/ML 3ML SQ SCH ×4 (06:01→20:47)
[2020-05-19] MEDS: ZINC SULFATE 220 CAPSULE PO SCH (06:30)
[2020-05-19 08:00] VITALS: BP 136/65
--- NOTE | 2020-05-19 09:00 | NUR ---
AM ASSESSMENT PT AWAKE, ALERT, AND ORIENTED. ASSISTANCE WITH ADLS, GENERALIZED WEAKNESS. PT CONTINUE TO REFUSE WAFFLE BOOTS BILATERALLY, EDUCATED ON IMPORTANCE OF USING WAFFLE BOOTS, PT REFUSED. ENCOURAGED TO BE TURNED Q 2 HOURS AND NEEDED. CALL LIGHT WITHIN REACH.
--- NOTE | 2020-05-19 10:30 | NUR ---
SWALLOWING TREATMENT COMPLETED S: Pt COOPERATIVE DURING ALL ACTIVITIES. Pt SELF-FED DURING THERAPEUTIC TRIALS. Pt REPORTS DOING BETTER WITH P.O. 0: Pt CURRENTLY TARGETING SWALLOWING GOALS, RESULTS ARE FOLLOWS: Pt PARTICIPATED IN LARYNGEAL ELEVATION/EXCURSION EXERCISES WITH 70% ACCURACY. Pt REQUIRES MAX CUES TO COMPLETE ALL TASKS. DIAPHRAGMATIC BREATHING COMPLETED AT THIS TIME. 2. Pt PARTICIPATED IN THERAPEUTIC TRIALS OF MECHANICAL SOFT X10 AND THIN LIQUIDS VIA CUP SIP X5 WITH NO S/S OF ASPIRATION. Pt COMPLETED SELF-FEEDING INDEPENDENTLY AT THIS TIME. 3. SKILLED EDUCATION Pt/FAMILY/STAFF: COMPLETED A: PATIENT GIVEN VERBAL CUES TO COMPLETE TASKS. PATIENT CONTINUES WITH BREATHY VOICE. Pt WITH IMPROVED LARYNGEAL ELEVATION/EXCURSION DURING MANUAL PALPATION. P: RECOMMEND CONTINUED MECHANICAL SOFT/CHOPPED, THIN LIQUIDS. SKILLED SPEECH THERAPY 3-5XWK IS RECOMMENDED. CERTIFIED SURGICAL FIRST ASSISTANT COORDINATED WITH NURSE TORRES. Addendum: 05/19/20 at [address] Amended: Links added.
[2020-05-19] MEDS: LEVOFLOXACIN 500 MG TABLET PO SCH (10:34)
[2020-05-19] MEDS: PANTOPRAZOLE SODIUM 40 MG TABLET.DR PO SCH (10:34)
[2020-05-19] MEDS: DOXYCYCLINE HYCLATE 100 MG TABLET PO SCH ×2 (10:34→20:47)
[2020-05-19] MEDS: ASCORBIC ACID 500 MG TAB PO SCH (10:34)
[2020-05-19] MEDS: FAMOTIDINE 20MG TAB 20 MG TAB PO SCH (10:34)
[2020-05-19] MEDS: ENOXAPARIN SODIUM 40 MG/0.4 ML SYRINGE SQ SCH (10:35)
[2020-05-19] MEDS: HONEY 1 APPL/ML TUBE TP SCH (10:36)
[2020-05-19] MEDS: INSULIN GLARGINE 100 UNITS/ML 10 ML VIAL SQ SCH (10:36)
[2020-05-19 11:49] VITALS: BP 125/56
--- NOTE | 2020-05-19 13:10 | NUR ---
DISCHARGE PLANNING; SPOKE W/ SPOUSE. NEEDS A. 3-IN-1 CHAIR AND WHEELCHAIR WITH LEG RESTS. CM WILL WORK WITH JOSUE. SPOUSE SAY CAN CONTRIBUTE $100. B. DIRECTION AND A PLAN FROM [facility] WILL CONTACT Jennifer VASQUEZ UP TIME TO MEET W SPOUSE/PATIENT C. WOUND CARE// SUPPLIES. SPOUSE SAYS WAS DOING BEFORE, CAN LEARN AGAIN, DR. BARROSO CAN ORDER SUPPLIES THROUGH A PROGRAM THAT IS ALREADY SET UP WITH THE [facility]. AVISED SPOUSE CALL [facility] TO SET UP TELE HEALTH TODAY TO BE READY FOR DISCHARGE DR. Brewster INFORMED OF DC PLAN Addendum: 05/19/20 at 1339 by ONOFRE BELLO RN CM Amended: Links added.
[2020-05-19 16:00] VITALS: BP 123/58
[2020-05-19 19:38] VITALS: BP 131/68
[2020-05-19 23:44] VITALS: BP 109/52
[2020-05-20] MEDS: ACETAMINOPHEN ELIXIR 650 MG/20.3 ML UDCUP PO PRN (03:31)
[2020-05-20 04:21] VITALS: BP 123/61
[2020-05-20] MEDS: INSULIN HUMULIN R 100 UNIT/ML 3ML SQ SCH ×3 (05:48→18:15)
[2020-05-20] MEDS: ZINC SULFATE 220 CAPSULE PO SCH (06:12)
[2020-05-20] MEDS: PANTOPRAZOLE SODIUM 40 MG TABLET.DR PO SCH (06:12)
[2020-05-20 08:00] VITALS: BP 124/64
[2020-05-20] MEDS: LEVOFLOXACIN 500 MG TABLET PO SCH (10:46)
[2020-05-20] MEDS: DOXYCYCLINE HYCLATE 100 MG TABLET PO SCH (10:46)
[2020-05-20] MEDS: ASCORBIC ACID 500 MG TAB PO SCH (10:46)
[2020-05-20] MEDS: FAMOTIDINE 20MG TAB 20 MG TAB PO SCH (10:46)
[2020-05-20] MEDS: INSULIN GLARGINE 100 UNITS/ML 10 ML VIAL SQ SCH (10:47)
[2020-05-20] MEDS: ENOXAPARIN SODIUM 40 MG/0.4 ML SYRINGE SQ SCH (10:52)
[2020-05-20] MEDS: HONEY 1 APPL/ML TUBE TP SCH (10:52)
[2020-05-20] MEDS ORDERED: FAMO20TA8 PO (11:30)
[2020-05-20] MEDS ORDERED: DOXY100T2 PO (11:30)
[2020-05-20] MEDS ORDERED: ASCO500T20 PO (11:30)
[2020-05-20] MEDS ORDERED: LEVO500T2 PO (11:30)
[2020-05-20] MEDS ORDERED: HONE44PA TP (11:30)
[2020-05-20 12:00] VITALS: BP 117/52
--- NOTE | 2020-05-20 13:00 | NUR ---
FC FC DISCONTINUED TOLERATED WELL.
[2020-05-20 16:00] VITALS: BP 119/53
[2020-05-20] MEDS ORDERED: SIMV40TA59 PO (16:29)
[2020-05-20] MEDS ORDERED: INSU100I24 SQ (16:31)
[2020-05-20] MEDS ORDERED: INSREG SQ (16:32)
--- NOTE | 2020-05-20 17:00 | NUR ---
VOIDED PT VOIDED WITHOUT DIFFICULTY AT THIS TIME.
--- NOTE | 2020-05-20 18:30 | NUR ---
DC PATIENT AWAKE, ALERT, AND ORIENTED. DENIES CHEST PAIN OR DISCOMFORT, NO SOB OR LABORED RESPIRATIONS. SPOUSE AT BEDSIDE, DC HOME INSTRUCTIONS GIVEN TO PT AND SPOUSE. ACKNOWLEDGED ALL INFORMATION, ALL QUESTIONS ANSWERED. SPOUSE EDUCATED ON WOUND CARE, DEMONSTRATED WOUND CARE TO ABDOMEN, BACK , AND HIP. ACKNOWLEDGED INFORMATION AND RETURN DEMONSTRATION. MADE AWARE PT HAS BEEN REFUSING BILATERAL WAFFLE HEEL PROTECTORS ORDERED, EDUCATED ON IMPORTANCE OF PROTECTING HEELS. SPOUSE STATES WOUND TO BACK HEALING. PT MADE AWARE TO RETURN TO ER IF NECESSARY.
== END 2020-05-20 22:45 | disposition home or self-care (01) | DRG 870 ==
LOC: EDH 17:33 → EDHIP 17:34 → 2CH 04-24 14:46 → DAHIP 04-24 19:51 → 4DH 05-02 16:30 → 4CH 05-07 03:42
PROVIDERS: ADMIT Internal Medicine; ATTEND Internal Medicine
PROC: 02HV33Z Insertion of Infusion Device into Superior Vena Cava, Percutaneous Approach (ICD-10-PCS; 2020-04-23)
PROC: 5A1955Z Respiratory Ventilation, Greater than 96 Consecutive Hours (ICD-10-PCS; principal; 2020-04-24)
PROC: 0BH17EZ Insertion of Endotracheal Airway into Trachea, Via Natural or Artificial Opening (ICD-10-PCS; 2020-04-24)
DX: A41.1 Sepsis due to other specified staphylococcus (principal); J96.01 Acute respiratory failure with hypoxia; E43 Unspecified severe protein-calorie malnutrition; R65.21 Severe sepsis with septic shock; E87.1 Hypo-osmolality and hyponatremia; N17.9 Acute kidney failure, unspecified; L03.311 Cellulitis of abdominal wall; E87.0 Hyperosmolality and hypernatremia; L02.212 Cutaneous abscess of back [any part, except buttock and flank]; Z20.828 Contact with and (suspected) exposure to other viral communicable diseases; E87.6 Hypokalemia; R53.81 Other malaise; L89.152 Pressure ulcer of sacral region, stage 2; L89.312 Pressure ulcer of right buttock, stage 2; A41.59 Other Gram-negative sepsis; B96.5 Pseudomonas (aeruginosa) (mallei) (pseudomallei) as the cause of diseases classified elsewhere; L89.622 Pressure ulcer of left heel, stage 2; Z68.33 Body mass index [BMI] 33.0-33.9, adult; E66.01 Morbid (severe) obesity due to excess calories; T63.301A Toxic effect of unspecified spider venom, accidental (unintentional), initial encounter; Y92.89 Other specified places as the place of occurrence of the external cause; E11.65 Type 2 diabetes mellitus with hyperglycemia; Z74.01 Bed confinement status; L98.499 Non-pressure chronic ulcer of skin of other sites with unspecified severity; R13.10 Dysphagia, unspecified
CPT/HCPCS: 31500; 36415; 36600; 70450; 71045; 71250; 74177; 76705; 78582; 80048; 80053; 80076; 80202; 81001; 82435; 82550; 82728; 82803; 82947; 82948; 83605; 83615; 83735; 83874; 84100; 84132; 84145; 84295; 84484; 85018; 85025; 85378; 85610; 85730; 86140; 86900; 86901; 87040; 87070; 87071; 87076; 87077; 87088; 87186; 87205; 87426; 87804; 92526; 92610; 93005; 93306; 94002; 94003; 94640; 94664; 94667; 94668; 97039; A9540; A9558; C1751; C1894; G0378; J0692; J1450; J1630; J1650; J1720; J1815; J1885; J1940; J2060; J2185; J2250; J2370; J2405; J2543; J2704; J2920; J2930; J3010; J3370; J3475; J3480; J3490; J7030; J7040; J7050; J7070; J7608; Q9967; U0003